=== PATIENT | male | born 1955 | race Caucasian/White ===

== ENCOUNTER → 2018-07-17 18:43 | Outpatient (CLI) | payer MEDICAID | END | disposition home or self-care (01) | LOC: D.LABREF 18:43 | DX: R31.9 Hematuria, unspecified (principal) ==

== ENCOUNTER 2018-09-16 08:30 | Day surgery (SDC) | payer BC ==
[2018-09-15 10:01] LABS: HEMATOCRIT 45.5 % (42.0-54.0); HEMOGLOBIN 15.4 g/dL (13.5-17.5); MCH 29.8 pg (26.0-34.0); MCHC 33.8 g/dL (31.0-37.0); MEAN PLATELET VOLUME 9.7 fL (7.4-10.4); RBC 5.17 10x6/uL (4.20-6.10); RDW 13.7 % (11.5-14.5); WBC 6.2 10x3/uL (4.8-10.8)
[2018-09-15 10:17] LABS: APTT 29.3 SECONDS (22.8-39.4); INR 1.02 (0.85-1.17); PROTIME 12.9 SECONDS (11.6-15.0)
[~2018-09-16] VITALS: Ht 185.4 cm; Wt 100.2 kg
[~2018-09-16 08:30] MED LIST: ATIVAN0.5 MG PO; FEXOFENADINE H180 MG PO; OXYBUTYNIN CHLOR5 MG PO; ZOLOFT100 MG PO
[2018-09-16 08:56] VITALS: BP 139/86; Ht 185.4 cm; Wt 100.2 kg
[2018-09-16] MEDS ORDERED: FUROSEMIDE20 MG PO (11:25)
[2018-09-16] MEDS ORDERED: FLOMAX0.4 MG PO (11:25)
[2018-09-16] MEDS ORDERED: HYDROCODON-ACE1 EAC7 PO (11:25)
== END 2018-09-16 15:45 | disposition home or self-care (01) ==
LOC: D.OPS 08:30 → D.PAN 10:45 → D.OPS 10:45
PROVIDERS: Anesthesiology; ATTEND Surgery
DX: K40.90 Unilateral inguinal hernia, without obstruction or gangrene, not specified as recurrent (principal); Z01.812 Encounter for preprocedural laboratory examination

== ENCOUNTER 2019-02-11 12:20 | Inpatient (IN) | payer BC ==
[~2019-02-11] VITALS: Ht 185.4 cm; Wt 95.5 kg
[~2019-02-11 12:20] MED LIST changes: +FLOMAX0.4 MG PO; +FUROSEMIDE20 MG PO; +HYDROCODON-ACE1 EAC7 PO
[2019-02-17 11:02] LABS: BASOPHILS 0.2 % (0-2); HEMATOCRIT 44.3 % (42.0-54.0); HEMOGLOBIN 15.3 g/dL (13.5-17.5); IMMATURE GRANULOCYTES 0.2 % (0-5); LYMPHOCYTES 29.5 % (15-50); MCHC 34.5 g/dL (31.0-37.0); MCV 84.1 fL (80.0-100.0); MEAN PLATELET VOLUME 9.6 fL (7.4-10.4); MONOCYTES 9.5 % (2-11); NEUTROPHILS 58.6 % (40-80); PLATELET COUNT 243 10x3/uL (130-400); RBC 5.27 10x6/uL (4.20-6.10); RDW 14.8 % (11.5-14.5); WBC 5.4 10x3/uL (4.8-10.8)
[2019-02-17 11:11] LABS: CALC OSMOLALITY 283 mosm/kg (275-300); CALCIUM 9.2 mg/dL (8.5-10.1); CARBON DIOXIDE 29.3 mmol/L (21.0-32.0); CHLORIDE - SERUM 106 mmol/L (98-107); GLUCOSE 102 mg/dL (74-106); POTASSIUM - SERUM 4.8 mmol/L (3.5-5.1); SODIUM 141 mmol/L (136-145); UREA NITROGEN 21 mg/dL (7-18); eGFR NON AFRICAN AMERICAN 80 mL/min (90-120)
[2019-02-17 11:13] LABS: APTT 27.5 SECONDS (22.8-39.4); PROTIME 12.7 SECONDS (11.6-15.0)
[2019-02-17 11:26] LABS: APPEARANCE HAZY (CLEAR); BILIRUBIN NEGATIVE (NEGATIVE); COLOR YELLOW (YELLOW); GLUCOSE NEGATIVE (NEGATIVE); KETONE NEGATIVE (NEGATIVE); NITRITE NEGATIVE (NEGATIVE); PROTEIN NEGATIVE (NEGATIVE); SPECIFIC GRAVITY 1.015 (1.005-1.020)
[2019-02-23] VITALS (8 sets, daily range): BP systolic 93–136; BP diastolic 69–96; Ht 185.4 cm; Wt 95.5 kg
--- NOTE | 2019-02-23 11:22 | NUR ---
PLASMA BLADE SET TO 6/8 BOVIE PAD RIGHT THIGH [id number] EXP 07/09/20 PREPPED FROM ILIAC CREST TO TOP OF HANA BOOT WITH HIBICLENS AND ALCOHOL AND THEN CHLORAPREP. LAMINAR FLOW IN USE. TRAFFIC IN AND OUT OF ROOM MONITORED CLOSELY AND LIMITED. TOBRAMYCIN 1.2GM AND VANCOMYCIN 1 GM PLACED IN WOUND BED.
--- NOTE | 2019-02-23 14:30 | NUR ---
PT ARRIVES TO ROOM TRANSPORTED BY RECOVERY ROOM STAFF VIA BED. FAMILY IS AT BEDSIDE. PT PLACED ON 2L O2 VIA NC. VSS. SEE FLOWSHEET. BED ALARM IS ON AND WORKING. PT IS RESTING WITH EYES CLOSED. RESPIRATIONS ARE EVEN AND UNLABORED. PT IS EASILY AROUSED WITH VERBAL STIMULATION. PT QUICKLY RETURNS TO RESTING STATE. DRESSING TO LEFT HIP IS C/D/I. PT REPORTS PAIN 8/10 TO LEFT HIP. BED IS IN THE LOWEST POSITION. CALL LIGHT AND BEDSIDE TABLE ARE WITHIN REACH. SIDE RAILS X 2. FAMILY AT BEDSIDE. PT AND PT FAMILY DENY FURTHER NEEDS AT THIS TIME. WILL CONT TO CLOSELY MONITOR.
--- NOTE | 2019-02-23 14:38 | NUR ---
SCDS ARE ON BILATERAL LOWER EXTREMITIES. IS AT BEDSIDE.
--- NOTE | 2019-02-23 14:53 | OP ---
PATIENT NAME: DONALD MORRIS MEDICAL RECORD: [id number] :57 LOCATION:D.MS [id number] ADMISSION DATE:02/23/19 SURGEON: RALPH MARTIN DO DATE OF OPERATION: 02/23/2019 PROCEDURE PERFORMED: Left total hip arthroplasty. PREOPERATIVE DIAGNOSIS: Left hip osteoarthritis. POSTOPERATIVE DIAGNOSIS: Left hip osteoarthritis. INDICATIONS: Mr. Morris is a 63-year-old male who has had left hip pain for quite some time with lack of motion and he is tired of dealing with it. He has tried everything including injections and activity modification to no avail and he wanted a hip replacement. He is aware of the risks including infection, bleeding, damage to nerves and vessels, fracture, need for further surgery, failure of implants, blood clots, and even . He signed the consent. SURGEON: Ralph Martin DO MASTER WELDER: I was assisted by Nahum Greene, advanced nurse practitioner. DESCRIPTION OF PROCEDURE: The patient received a block by anesthesia in the preoperative area. He was taken to the operative suite, laid in supine position, given general anesthetic and a gram of vancomycin due to his Ancef allergy. Once he was sedated and intubated, the patient was moved over to the [place] table and positioned. The left hip was then prepped and draped in usual sterile fashion. Once the hip was prepped and draped, a timeout was performed, everyone was in agreement with the correct side, site, patient and procedure and the procedure began by making an incision over the tensor fascia feliz muscle. Careful dissection was made down to the tensor fascia feliz fascia. Fascia was taken anterior muscle belly posteriorly, opened up to the rectus interval. The rectus was then taken medially and then tensor fascia feliz laterally. The ascending branch of the lateral femoral circumflex artery was then encountered and tied off and then coagulated with the Aquamantys and then down to the capsule. Capsule was cleared off. Capsulotomy was performed and the neck was exposed. The neck was then cut and the head was removed. Once the head was removed, the labrum was removed as well as the pulvinar. The reaming then began up to 58. The 58 cup was then impacted into place and fit very well, was secured into place and pulled and pushed and ensured that it was a good tight fit and it was. The liner was then put in on the cup under fluoroscopy. The femur was then exposed and broaching began with a 4 up to an 11. We trialed that, appeared we need to lateralize a little more. This was then done and went up to a 14 stem with a high offset and a 28 bipolar ceramic head and a -6 neck. This was good. Equal lengths compared to his other side on x-ray on AP pelvis and once we got this in good position, x-rays were done ensuring no fractures in the femur, had good position of all the components. The wound was then thoroughly irrigated with Bactisure 1 liter and then 1 liter of normal saline. Once it was irrigated, the tobramycin and vancomycin powder as well as Surgicel powder was put in the wound. The tensor fascia feliz fascia was closed with #1 Vicryl first in a [id number] and then a running locking stitch. The skin was closed with 2-0 Vicryl in an inverted interrupted fashion, 4-0 Monocryl ran on the skin and Prineo glue placed on the skin. Telfa and Tegaderm covered the wound. The patient was awakened and taken to recovery in stable condition. Blood loss was approximately 200 mL. OPERATIVE REPORT [id number] DONALD MORRIS COMPLICATIONS: None. TRANSINT:[id number] Voice Confirmation ID: [id number] DOCUMENT ID: [id number] RALPH MARTIN DO at 1453 CC: [id number] DICTATION DATE: 02/23/19 1238 TORSION SPRING COILING MACHINE SETTER: 02/23/19 1428 ADM IN [place] [id number] [place] [id number]
--- NOTE | 2019-02-24 00:57 | NUR ---
PT RESTING IN BED. ALERT AND ORIENTED. NO SIGNS OF DISTRESS. BREATHING EVEN AND UNLABORED. PT STATES HARD TIME KEEPING PAIN UNDER CONTROL. WILL TRY SOMETHING ELSE FOR PAIN. IV SITE RT FA DRESSING CLEAN DRY AND INTACT. NO SIGNS OF INFECTION. BOWEL SOUNDS ACTIVE. LT HIP DRESSING CLEAN DRY AND INTACT. SCDS AND CHRISTIAN HOSE ON PT. WILL CONTINUE PLAN OF CARE. CALL LIGHT IN REACH. BED LOWERED AND LOCKED. BED RAILS UPX2.
[2019-02-24 01:11] VITALS: BP 100/51
--- NOTE | 2019-02-24 04:23 | NUR ---
I have reviewed this patient and I concur with the Shift Assessment completed by the Licensed Practical Nurse today this shift.
[2019-02-24 05:18] VITALS: BP 106/56
[2019-02-24 07:07] LABS: BASOPHILS 0.1 % (0-2); EOSINOPHILS 0.1 % (0-7); HEMATOCRIT 35.5 % (42.0-54.0); HEMOGLOBIN 12.4 g/dL (13.5-17.5); IMMATURE GRANULOCYTES 0.2 % (0-5); LYMPHOCYTES 14.6 % (15-50); MCH 29.5 pg (26.0-34.0); MCHC 34.9 g/dL (31.0-37.0); MCV 84.3 fL (80.0-100.0); MEAN PLATELET VOLUME 9.7 fL (7.4-10.4); MONOCYTES 12.6 % (2-11); NEUTROPHILS 72.4 % (40-80); PLATELET COUNT 217 10x3/uL (130-400); RBC 4.21 10x6/uL (4.20-6.10); WBC 9.1 10x3/uL (4.8-10.8)
[2019-02-24 07:36] LABS: ALBUMIN 3.1 g/dL (3.4-5.0); ANION GAP 12.8 mmol/L (8-16); BILIRUBIN - TOTAL 0.44 mg/dL (0.2-1.3); CALCIUM 8.4 mg/dL (8.5-10.1); CARBON DIOXIDE 26.4 mmol/L (21.0-32.0); CREATININE - SERUM 1.2 mg/dL (0.6-1.3); POTASSIUM - SERUM 4.2 mmol/L (3.5-5.1); PROTEIN - SERUM 5.9 g/dL (6.4-8.2)
--- NOTE | 2019-02-24 07:42 | NUR ---
PT IS RESTING IN BED WITH EYES CLOSED. RESPIRATIONS ARE EVEN AND UNLABORED. PT IS EASILY AROUSED WITH VERBAL STIMULATION. PT REPORTS DISCOMFORT TO LEFT HIP BUT DENIES NEEDS AT THIS TIME. PT DENIES PRESENCE OF N/V. DRESSING TO LEFT HIP IS CDI. PT IS ABLE TO MOVE TOES AND REPORTS FEELING TO LEFT LOWER EXTREMITY. BED IS IN THE LOWEST POSITION. CALL LIGHT AND BEDSIDE TABLE ARE WITHINR EACH. SIDE RAILS X 2. PT DENIES FURTHER NEEDS. WILL CONT TO MONITOR.
[2019-02-24 09:03] VITALS: BP 94/64
--- NOTE | 2019-02-24 11:15 | NUR ---
DRESSING CHANGED TO LLE PER ORDER. PT TOLERATED WELL. SIGNAL TECHNICIAN DILAUDID AVAILABLE.
[2019-02-24 13:48] VITALS: BP 107/63
--- NOTE | 2019-02-24 14:32 | MORECARE ---
CASE MANAGEMENT DISCHARGE SUMMARY PATIENT: DONALD MORRIS UNIT: [id number] ADM DATE: 02/23/19 AGE: 63 : 57 SEX: M ROOM/BED: D.2211 AUTHOR: MARIAMA ORR PHYSICIAN: REFERRING PHYSICIAN: DARIUS MARTIN DO DATE OF SERVICE: 02/24/19 Discharge Plan Patient Name: DONALD MORRIS Facility: [facility]:[place] : 1955 Planned Disposition: Home Anticipated Discharge Date: Discharge Date: Expected LOS: Initial Reviewer: [email or web address] Initial Review Date: 02/23/2019 Generated: 02/24/19 3:32 pm Comments DCP- Discharge Planning Updated by [email or web address]: Celi Carter on 02/24/19 1:[address] Patient Name: DONALD MORIRS Admission Status: Elective Accout number: [id number] Admission Date: 02-23-2019 : 1955 Admission Diagnosis: Attending: DARIUS MARTIN Current LOS: 1 Anticipated DC Date: Planned Disposition: Home Primary Insurance: [employer] EXCHANGE Discharge Planning Comments: CM met with patient to complete initial dc planning assessment. CM educated patient on the CM role and verbal consent given by patient to complete assessment. Patient lives at home with his where he is independent with his care. At discharge patient plans to return home and feels this is a safe discharge. CM discussed availability of home health, rehab services, and medical equipment. He will need a walker at [place]. He would like to do his OP PT at [facility]. I have made his appointment for FridayMar 02 @ 12:45. I spoke with Nikhil. Patient denied known discharge needs at this time. CM will continue to follow and will assist as needed with dc plans/needs. Loan Services Professional: Celi Carter DCPIA - Discharge Planning Initial Assessment Updated by [email or web address]: Celi Carter on 02/24/19 2:25 pm * Is the patient Alert and Oriented? Yes * How many steps to enter\exit or inside your home? * PCP [facility] * Pharmacy [address] * Preadmission Environment Home with Family * ADLs Independent * Equipment None * List name and contact numbers for known caregivers / representatives who currently or will assist patient after discharge: SHALINI MORRIS [phone] * Verbal permission to speak to the caregivers and representatives has been obtained from the patient. N/A * Community resources currently utilized None * Additional services required to return to the preadmission environment? Yes * Can the patient safely return to the preadmission environment? Yes * Has this patient been hospitalized within the prior 30 days at any hospital? No Patient Name: DONALD MORRIS Page [phone] at 1432 All edits/amendments must be made on the electronic document DICTATION DATE: 02/24/19 143 ADMINISTRATIVE RESIDENT: LAURI 02/24/19 143 RPT#: [id number] DC DATE: STATUS: ADM IN [facility] [address] [place] [address] END OF REPORT
[2019-02-24 17:10] VITALS: BP 117/63
[2019-02-24 21:53] VITALS: BP 104/49
[2019-02-25 00:25] VITALS: BP 113/58
--- NOTE | 2019-02-25 04:19 | NUR ---
PT RESTING IN BED. EYES CLOSED. NO SIGNS OF DISTRESS. BREATHING EVEN AND UNLABORED. IV SITE RT FA DRESSING CLEAN DRY AND INTACT. NO SIGNS OF INFECTION. BOWEL SOUNDS ACTIVE. LT HIP DRESSING CLEAN DRY AND INTACT. WILL CONTINUE PLAN OF CARE. CALL LIGHT IN REACH. BED LOWERED AND LOCKED. BED RAILS UPX2.
--- NOTE | 2019-02-25 04:21 | NUR ---
IV INFULTRATED. NEW IV SITED LT FA ATTEMPTS X1. PT TOLERATED WELL. WILL CONTINUE IV FLUIDS.
[2019-02-25 05:16] VITALS: BP 105/70
[2019-02-25 06:01] LABS: BASOPHILS 0.1 % (0-2); EOSINOPHILS 2.3 % (0-7); HEMATOCRIT 35.5 % (42.0-54.0); HEMOGLOBIN 11.8 g/dL (13.5-17.5); IMMATURE GRANULOCYTES 0.3 % (0-5); LYMPHOCYTES 19.5 % (15-50); MCH 28.3 pg (26.0-34.0); MCHC 33.2 g/dL (31.0-37.0); MCV 85.1 fL (80.0-100.0); MEAN PLATELET VOLUME 9.7 fL (7.4-10.4); MONOCYTES 11.9 % (2-11); NEUTROPHILS 65.9 % (40-80); PLATELET COUNT 183 10x3/uL (130-400); RBC 4.17 10x6/uL (4.20-6.10); RDW 15.1 % (11.5-14.5); WBC 7.4 10x3/uL (4.8-10.8)
[2019-02-25 06:38] LABS: ALBUMIN 3.1 g/dL (3.4-5.0); ANION GAP 8.9 mmol/L (8-16); BILIRUBIN - TOTAL 0.61 mg/dL (0.2-1.3); CALCIUM 8.4 mg/dL (8.5-10.1); CARBON DIOXIDE 30.5 mmol/L (21.0-32.0); CREATININE - SERUM 1.1 mg/dL (0.6-1.3); POTASSIUM - SERUM 4.4 mmol/L (3.5-5.1); PROTEIN - SERUM 5.8 g/dL (6.4-8.2)
--- NOTE | 2019-02-25 07:20 | NUR ---
PT IS RESTING IN BED WITH EYES OPEN. RESPIRATIONS ARE EVEN AND UNLABORED. PT REPORTS SLIGHT PAIN. DENIES NEEDS. PT DENIES PRESENCE OF N/V. DRESSING TO LEFT HIP IS CDI. BED IS IN THE LOWEST POSITION. CALL LIGHT AND BEDSIDE TABLE ARE WITHIN REACH. SIDE RAILS X2. PT DENIES FURTHER NEEDS. WILL CONT TO MONITOR.
[2019-02-25] MEDS ORDERED: ELIQUIS2.5 MG PO (08:17)
[2019-02-25] MEDS ORDERED: VISTARIL50 MG PO (08:18)
[2019-02-25] MEDS ORDERED: OXYCODONE HCL5 M1 PO (08:18)
[2019-02-25] MEDS ORDERED: VIBRAMYCIN 100100 MG PO (08:18)
[2019-02-25 08:47] VITALS: BP 116/73
--- NOTE | 2019-02-25 10:03 | MORECARE ---
CASE MANAGEMENT DISCHARGE SUMMARY PATIENT: DONALD MORRIS UNIT: [id number] ADM DATE: 02/23/19 AGE: 63 : 57 SEX: M ROOM/BED: D.2211 AUTHOR: MARIAMA ORR PHYSICIAN: REFERRING PHYSICIAN: DARIUS MARTIN DO DATE OF SERVICE: 02/25/19 Discharge Plan Patient Name: DONALD MORRIS Facility: [facility]:[place] : 1955 Planned Disposition: Home Anticipated Discharge Date: Discharge Date: Expected LOS: Initial Reviewer: [email or web address] Initial Review Date: 02/23/2019 Generated: 02/25/19 11:02 am Comments DCP- Discharge Planning Updated by [email or web address]: Celi Carter on 02/25/19 9:[address] [facility] WILL DELIVER WALKER TO ROOM TODAY PATIENT TO DC HOME TODAY WITH OUTPATIENT PT DCP- Discharge Planning Updated by [email or web address]: Celi Carter on 02/24/19 1:[address] Patient Name: DONALD MORRIS Admission Status: Elective Accout number: [id number] Admission Date: 02-23-2019 : 1955 Admission Diagnosis: Attending: DARIUS MARTIN Current LOS: 1 Anticipated DC Date: Planned Disposition: Home Primary Insurance: [employer] [facility] EXCHANGE Discharge Planning Comments: CM met with patient to complete initial dc planning assessment. CM educated patient on the CM role and verbal consent given by patient to complete assessment. Patient lives at home with his where he is independent with his care. At discharge patient plans to return home and feels this is a safe discharge. CM discussed availability of home health, rehab services, and medical equipment. He will need a walker at [place]. He would like to do his OP PT at [facility]. I have made his appointment for FridayMar 02 @ 12:45. I spoke with Nikhil. Patient denied known discharge needs at this time. CM will continue to follow and will assist as needed with dc plans/needs. Office Assistant Receptionist: Celi Carter DCPIA - Discharge Planning Initial Assessment Updated by [email or web address]: Celi Carter on 02/24/19 2:25 pm * Is the patient Alert and Oriented? Yes * How many steps to enter\exit or inside your home? * PCP [facility] * Pharmacy [address] * Preadmission Environment Home with Family * ADLs Independent * Equipment None * List name and contact numbers for known caregivers / representatives who currently or will assist patient after discharge: SHALINI MORRIS [phone] * Verbal permission to speak to the caregivers and representatives has been obtained from the patient. N/A * Community resources currently utilized None * Additional services required to return to the preadmission environment? Yes * Can the patient safely return to the preadmission environment? Yes * Has this patient been hospitalized within the prior 30 days at any hospital? No Last DP export: 02/24/19 1:32 p Patient Name: DONALD MORRIS Page [phone] at 1003 All edits/amendments must be made on the electronic document DICTATION DATE: 02/25/19 1002 TABLEAU DEVELOPER: LAURI 02/25/19 1002 RPT#: [id number] DC DATE: STATUS: ADM IN [facility] [address] [place] [address] END OF REPORT
--- NOTE | 2019-02-25 11:33 | NUR ---
DRESSING TO LEFT HIP CHANGED PER ORDER. ALL DISCHARGE INSTRUCTIONS COVERED WITH PT. PRINTED RX GIVEN TO PT. ALL QUESTIONS/CONCERNS ADDRESSED. PIV TO LEFT FA REMOVED WITH CATHETER TIP INTACT. DRESSING APPLIED. ALL DISCHARGE PAPERS SIGNED. PT DENIES FURTHER NEEDS/QUESTIONS/CONCERNS.
--- NOTE | 2019-02-25 11:52 | NUR ---
PT TRANSPORTED FROM ROOM VIA WHEELCHAIR BY HOSPITAL STAFF. PT DENIES FURTHER NEEDS/QUESTIONS/CONCERNS AT THIS TIME. PT WITH WALKER FOR HOME USE.
--- NOTE | 2019-02-26 12:48 | MORECARE ---
CASE MANAGEMENT DISCHARGE SUMMARY PATIENT: DONALD MORRIS UNIT: [id number] ADM DATE: 02/23/19 AGE: 63 : 57 SEX: M ROOM/BED: D.2211 AUTHOR: MARIAMA ORR PHYSICIAN: REFERRING PHYSICIAN: DARIUS MARTIN DO DATE OF SERVICE: 02/26/19 Discharge Plan Patient Name: DONALD MORRIS Facility: [facility]:[place] : 1955 Planned Disposition: Home Anticipated Discharge Date: Discharge Date: 02/25/2019 Expected LOS: 0 Initial Reviewer: [email or web address] Initial Review Date: 02/23/2019 Generated: 02/26/19 1:48 pm Comments DCP- Discharge Planning Updated by [email or web address]: Celi Carter on 02/25/19 9:[address] [facility] WILL DELIVER WALKER TO ROOM TODAY PATIENT TO DC HOME TODAY WITH OUTPATIENT PT DCP- Discharge Planning Updated by [email or web address]: Celi Carter on 02/24/19 1:[address] Patient Name: DONALD MORRIS Admission Status: Elective Accout number: [id number] Admission Date: 02-23-2019 : 1955 Admission Diagnosis: Attending: DARIUS MARTIN Current LOS: 1 Anticipated DC Date: Planned Disposition: Home Primary Insurance: [employer] [facility] EXCHANGE Discharge Planning Comments: CM met with patient to complete initial dc planning assessment. CM educated patient on the CM role and verbal consent given by patient to complete assessment. Patient lives at home with his where he is independent with his care. At discharge patient plans to return home and feels this is a safe discharge. CM discussed availability of home health, rehab services, and medical equipment. He will need a walker at [place]. He would like to do his OP PT at [facility]. I have made his appointment for FridayMar 02 @ 12:45. I spoke with Nikhil. Patient denied known discharge needs at this time. CM will continue to follow and will assist as needed with dc plans/needs. Director [place] Sales: Celi Carter DCPIA - Discharge Planning Initial Assessment Updated by [email or web address]: Celi Carter on 02/24/19 2:25 pm * Is the patient Alert and Oriented? Yes * How many steps to enter\exit or inside your home? * PCP [facility] * Pharmacy [address] * Preadmission Environment Home with Family * ADLs Independent * Equipment None * List name and contact numbers for known caregivers / representatives who currently or will assist patient after discharge: SHALINI MORRIS [phone] * Verbal permission to speak to the caregivers and representatives has been obtained from the patient. N/A * Community resources currently utilized None * Additional services required to return to the preadmission environment? Yes * Can the patient safely return to the preadmission environment? Yes * Has this patient been hospitalized within the prior 30 days at any hospital? No Last DP export: 02/25/19 9:03 a Patient Name: DONALD MORRIS Page 41989 at 1248 All edits/amendments must be made on the electronic document DICTATION DATE: 02/26/198 PREPARATION OPERATOR: LAURI 02/26/19 1248 RPT#: [id number] DC DATE:02/25/19 STATUS: DIS IN [facility] [address] [place] [address] END OF REPORT
== END 2019-02-25 12:44 | disposition home or self-care (01) | DRG 470 ==
LOC: D.MS 02-23 07:39 → D.SDCHOLD 02-23 07:39 → D.MS 02-23 13:40
PROVIDERS: Internal Medicine Nephrology; ADMIT Orthopaedic Surgery; ATTEND Orthopaedic Surgery
PROC: 0SRB0J9 Replacement of Left Hip Joint with Synthetic Substitute, Cemented, Open Approach (ICD-10-PCS; principal; 2019-02-23 09:15)
DX: M16.12 Unilateral primary osteoarthritis, left hip (principal); D62 Acute posthemorrhagic anemia; I25.10 Atherosclerotic heart disease of native coronary artery without angina pectoris; F41.9 Anxiety disorder, unspecified; Z85.820 Personal history of malignant melanoma of skin; Z85.46 Personal history of malignant neoplasm of prostate

== ENCOUNTER → 2019-02-11 14:03 | Outpatient (CLI) | payer BC ==
[2018-09-16 08:56] VITALS: BMI 29.2
[~2019-02-11 14:03] MED LIST changes: +ELIQUIS2.5 MG PO; +OXYCODONE HCL5 M1 PO; +VIBRAMYCIN 100100 MG PO; +VISTARIL50 MG PO
--- NOTE | 2019-02-24 14:31 | EC ---
PATIENT:DONALD MORRIS DATE OF SERVICE: 02/11/19 SEX: M MEDICAL RECORD: [id number] DATE OF : 57 LOCATION:[facility] AGE OF PATIENT: 63 ADMISSION DATE: 02/11/19 REFERRING PHYSICIAN: INTERPRETING PHYSICIAN: BEULAH PEREZ MD ECHOCARDIOGRAM REPORT ECHO CHARGES 4 ECHO COMPLETE Date: 02/11/19 CLINICAL DIAGNOSIS: MURMUR ECHOCARDIOGRAPHIC MEASUREMENTS (adult normal given) AC root (d.<3.7cm) 4.0 cm LV Septum d (<1.2 cm> 1.4 cm Valve Excursion 2.2 cm LV Septum (systole) 1.6 cm Left Atria (s.<4.0cm> 3.4 cm LVPW d(<1.2cm) 1.5 cm RV (d.<2.3cm) 3.4 cm LVPW (sytole) 1.7 cm LV diastole(<5.6CM) 4.9 cm MV E-F(>70mm/sec) cm LV systole 3.7 cm LVOT Diameter 2.1 cm MV exc.(>10mm) 1.5 cm Est.ejection fraction (50-75%) % DOPPLER: LVIT cm/sec A 72.0 cm/sec E 47.0 cm/sec LA cm/sec RVSP 30 mmHg LVOT 77 cm/sec AOP1/2T m/s Asc. Ao 113 cm/sec RVOT 62 cm/sec RA cm/sec PA 137 cm/sec AV Gradient Peak 5.12 mmHg AV Mean 2.70 mmHg AV Area 2.2 cm MV Gradient Peak 2.77 mmHg MV Mean 0.81 mmHg MV Area cm COMMENTS: Horticultural Services Supervisor: Ryder TANNER Mortising Machine Operator: 3 Dr. Pineda TAPE# PACS Pericardial Effusion N DATE OF SERVICE: 02/12/2019 FINDINGS: 1. Left ventricular chamber size is within normal limits. Left ventricular systolic function is normal. Overall ejection fraction estimated at 55%. 2. Left atrium, right atrium, and right ventricular chamber sizes are within normal limits. 3. Valvular structures have normal structure and motion. 4. Doppler interrogation reveals mild mitral regurgitation, mild tricuspid regurgitation. No other valvular insufficiency or stenosis. Pulmonary systolic ECHOCARDIOGRAM REPORT [id number] DONALD MORRIS pressure is estimated at 30 mmHg. 5. No evidence of pericardial effusion or left ventricular thrombus. TRANSINT:[id number] Voice Confirmation ID: [id number] DOCUMENT ID: [id number] BEULAH PEREZ MD at 1431 CC: [id number] DICTATION DATE: 02/12/1940 CLINICAL SYSTEMS EDUCATOR: 02/12/19 1039 DEP CLI 02/11/19 [place] [id number] [place] [id number]
== END | disposition home or self-care (01) ==
LOC: D.HCCARDIO 14:03
PROVIDERS: ATTEND Internal Medicine Interventional Cardiology
DX: R01.1 Cardiac murmur, unspecified (principal)

== ENCOUNTER → 2019-03-23 08:54 | Outpatient (CLI) | payer BC ==
[2019-02-23 14:41] VITALS: BMI 27.7
[~2019-03-23 08:54] MED LIST changes: +BAYER CHEWABLE81 MG PO; +PHENERGAN25 M1 PO; +RIFADIN300 MG PO; +SOMA350 MG PO; +Vancomycin 1.25 GM/N IV; +ZYVOX600 MG PO
== END | disposition home or self-care (01) ==
LOC: D.MRI 08:54
PROVIDERS: ATTEND Orthopaedic Surgery
DX: M54.16 Radiculopathy, lumbar region (principal)

== ENCOUNTER 2019-03-27 18:44 | Inpatient (IN) | payer BC ==
[~2019-03-27] VITALS: Ht 185.4 cm; Wt 97.5 kg
[~2019-03-27 18:44] MED LIST changes: -BAYER CHEWABLE81 MG PO; -PHENERGAN25 M1 PO; -RIFADIN300 MG PO; -SOMA350 MG PO; -Vancomycin 1.25 GM/N IV; -ZYVOX600 MG PO
[2019-03-27 19:24] LABS: BASOPHILS 0.2 % (0-2); EOSINOPHILS 1.1 % (0-7); HEMATOCRIT 42.4 % (42.0-54.0); HEMOGLOBIN 14.1 g/dL (13.5-17.5); IMMATURE GRANULOCYTES 0.2 % (0-5); MCH 29.3 pg (26.0-34.0); MCHC 33.3 g/dL (31.0-37.0); MCV 88.1 fL (80.0-100.0); MEAN PLATELET VOLUME 9.4 fL (7.4-10.4); MONOCYTES 6.3 % (2-11); NEUTROPHILS 84.2 % (40-80); PLATELET COUNT 248 10x3/uL (130-400); RBC 4.81 10x6/uL (4.20-6.10); RDW 14.4 % (11.5-14.5); WBC 13.3 10x3/uL (4.8-10.8)
[2019-03-27 19:39] LABS: ALBUMIN 4.1 g/dL (3.4-5.0); ANION GAP 16.3 mmol/L (8-16); BILIRUBIN - TOTAL 0.6 mg/dL (0.2-1.3); C-REACTIVE PROTEIN 1.1 mg/dL (0.0-0.9); CALCIUM 9.1 mg/dL (8.5-10.1); CARBON DIOXIDE 23.6 mmol/L (21.0-32.0); CREATININE - SERUM 1.2 mg/dL (0.6-1.3); POTASSIUM - SERUM 3.9 mmol/L (3.5-5.1); PROTEIN - SERUM 7.5 g/dL (6.4-8.2)
[2019-03-27 20:15] LABS: APPEARANCE CLEAR (CLEAR); BILIRUBIN NEGATIVE (NEGATIVE); COLOR YELLOW (YELLOW); GLUCOSE NEGATIVE (NEGATIVE); KETONE NEGATIVE (NEGATIVE); NITRITE NEGATIVE (NEGATIVE); PROTEIN TRACE mg/dL (NEGATIVE); SPECIFIC GRAVITY 1.005 (1.005-1.020); UROBILINOGEN NORMAL (NORMAL)
[2019-03-27 20:26] LABS: ERYTHROCYTE SEDIMENTATION RATE 7 mm/hr (0-20)
[2019-03-27 22:58] LABS: EOS BF 21 %; MESOTHELIALS BF 1 %; NEUT - BF 77 %
[2019-03-28 01:37] VITALS: BP 115/70; BMI 28.4
[2019-03-28 04:00] VITALS: BP 111/67
[2019-03-28 07:59] VITALS: BP 133/76
[2019-03-28 10:41] VITALS: BP 109/58
[2019-03-28 14:17] VITALS: BP 110/76
--- NOTE | 2019-03-28 17:59 | OP ---
PATIENT NAME: DONALD MORRIS MEDICAL RECORD: [id number] :57 LOCATION:D.MS [id number] ADMISSION DATE:03/27/19 SURGEON: RALPH MARTIN, DATE OF OPERATION: 03/28/2019 PROCEDURE PERFORMED: Left hip irrigation and debridement with poly and head exchange. PREOPERATIVE DIAGNOSIS: Left hip periprosthetic infection. POSTOPERATIVE DIAGNOSIS: Left hip periprosthetic infection. INDICATIONS: Mr. Morris is a 63-year-old male who underwent left total hip approximately 4 weeks ago, and last week and yesterday started to develop extreme left hip pain and could not bear weight on it and started to get a fever of 102. The patient was brought to the ER and labs were done. He had elevated white count and CRP. I aspirated his hip and it showed a serosanguineous viscous fluid. This was sent for lab with a white blood cell count of over 50,000 knowing that and all the symptoms, he was instructed that he had a hip infection and we do an I&D due to the acuteness of the fracture, in fact it did not work, we had to explain everything and do antibiotic spacers. He is aware that he will be on IV antibiotics for 6 weeks, he was okay with that. He does have a history of C. difficile, put on the protocol for antibiotic use. He was aware of the risk of further infection, bleeding, damage to nerves and vessels, need for further surgery, blood clots, and even and he signed the consent. SURGEON: Ralph Martin DO BOBCAT DRIVER/LABOR: Blessing Salamanca, certified assistant professor of spanish. DESCRIPTION OF PROCEDURE: The patient was taken to the operative suite in supine position, sedated and intubated. The patient was then moved over to the [place] table and positioned. The left hip was then prepped and draped in sterile fashion. A timeout was performed, everyone was in agreement with the correct side, site, patient and procedure. He has been on antibiotics on the floor, so no new antibiotics were given. The incision began over the old hip incision and since the incision was made, serosanguineous fluid gushed out of the incision. This was all cultured, 3 different sets of cultures were taken. The dissection was made down through the tensor fascia feliz fascia and down to the hip joint. A Charnley was placed and the hip was dislocated. The head was removed and the implants were very solid in the femur and in the acetabulum. There was no loosening seen on them and then began to debride the devitalized tissue and irrigated 6 liters of normal saline and then a liter of Bactisure let that sit for 2 minutes and then another 3 liters of normal saline. A new head and poly were put on the dual mobility. His hip was then reduced. X-ray was taken and seem to be in good position and no fracture seen. The hip was then irrigated fourth time with a bag of 3 liters of saline making it 12 liters total. Any tissue was scraped with a curette to cause bleeding at that time on the more superficial surface of the tensor fascia and the debridement was done at that time to have devitalized tissue. Once that, irrigation was done, we put vancomycin, tobramycin powder in the wound and Surgicel powder. The tensor fascia feliz was then closed with 0 Monocryl in [id number] fashion, skin with 2-0 Monocryl in an inverted interrupted fashion, 4-0 Monocryl ran on the skin and then a Prevena Plus was placed on the incision and hooked and up to wound VAC. He was then awakened and taken to recovery in stable condition. OPERATIVE REPORT [id number] DONALD MORRIS BLOOD LOSS: Approximately 100 mL. COMPLICATIONS: None. TRANSINT:[id number] Voice Confirmation ID: [id number] DOCUMENT ID: [id number] RALPH MARTIN DO at 1755 CC: [id number] DICTATION DATE: 03/28/19 0953 MILKING SYSTEM INSTALLER: 03/28/19 1712 ADM IN [facility] [address] [place] [id number]
[2019-03-28 20:00] VITALS: BP 119/59
[2019-03-29] VITALS: BP 105/53
[2019-03-29 04:00] VITALS: BP 103/71
[2019-03-29 05:33] LABS: BASOPHILS 0 % (0-2); EOSINOPHILS 0.1 % (0-7); IMMATURE GRANULOCYTES 0.3 % (0-5); MCH 28.6 pg (26.0-34.0); MCHC 31.7 g/dL (31.0-37.0); MEAN PLATELET VOLUME 9.7 fL (7.4-10.4); MONOCYTES 8.9 % (2-11); NEUTROPHILS 80.7 % (40-80); PLATELET COUNT 237 10x3/uL (130-400); RDW 14.5 % (11.5-14.5); WBC 12.4 10x3/uL (4.8-10.8)
[2019-03-29 05:44] LABS: HEMATOCRIT 33.4 % (42.0-54.0); HEMOGLOBIN 10.6 g/dL (13.5-17.5); RBC 3.71 10x6/uL (4.20-6.10)
[2019-03-29 05:55] LABS: BILIRUBIN - TOTAL 0.46 mg/dL (0.2-1.3); CALCIUM 8.4 mg/dL (8.5-10.1); CARBON DIOXIDE 28.2 mmol/L (21.0-32.0); CREATININE - SERUM 1.1 mg/dL (0.6-1.3); MAGNESIUM - SERUM 2.1 mg/dL (1.8-2.4); PROTEIN - SERUM 5.8 g/dL (6.4-8.2)
[2019-03-29 05:56] LABS: ANION GAP 10.6 mmol/L (8-16); POTASSIUM - SERUM 4.8 mmol/L (3.5-5.1)
[2019-03-29 08:36] VITALS: BP 93/59
[2019-03-29 12:38] VITALS: BP 105/63
[2019-03-29 12:46] VITALS: Ht 185.4 cm; Wt 97.5 kg
[2019-03-29 17:25] VITALS: BP 102/51
[2019-03-30] VITALS (7 sets, daily range): BP systolic 95–172; BP diastolic 54–86
[2019-03-30 06:39] LABS: BASOPHILS 0.2 % (0-2); EOSINOPHILS 4.2 % (0-7); HEMATOCRIT 33.7 % (42.0-54.0); HEMOGLOBIN 10.8 g/dL (13.5-17.5); IMMATURE GRANULOCYTES 0.5 % (0-5); LYMPHOCYTES 26.2 % (15-50); MCH 28.5 pg (26.0-34.0); MCV 88.9 fL (80.0-100.0); MONOCYTES 9.6 % (2-11); NEUTROPHILS 59.3 % (40-80); PLATELET COUNT 224 10x3/uL (130-400); RBC 3.79 10x6/uL (4.20-6.10); RDW 14.6 % (11.5-14.5)
[2019-03-30 06:43] LABS: WBC 8.8 10x3/uL (4.8-10.8)
[2019-03-30 06:57] LABS: ALBUMIN 2.8 g/dL (3.4-5.0); ANION GAP 9.9 mmol/L (8-16); BILIRUBIN - TOTAL 0.36 mg/dL (0.2-1.3); CALCIUM 8.3 mg/dL (8.5-10.1); CARBON DIOXIDE 28.5 mmol/L (21.0-32.0); CREATININE - SERUM 1.1 mg/dL (0.6-1.3); POTASSIUM - SERUM 4.4 mmol/L (3.5-5.1); PROTEIN - SERUM 5.6 g/dL (6.4-8.2)
--- NOTE | 2019-03-30 14:13 | MORECARE ---
CASE MANAGEMENT DISCHARGE SUMMARY PATIENT: DONALD MORRIS UNIT: [id number] ADM DATE: 03/27/19 AGE: 64 : 57 SEX: M ROOM/BED: D.2231 AUTHOR: MARIAMA ORR PHYSICIAN: REFERRING PHYSICIAN: DARIUS MARTIN DO DATE OF SERVICE: 03/30/19 Discharge Plan Patient Name: DONALD MORRIS Facility: [facility]:[place] : 1955 Planned Disposition: Home with Home Health Anticipated Discharge Date: Discharge Date: Expected LOS: Initial Reviewer: [email or web address] Initial Review Date: 03/30/2019 Generated: 03/30/19 3:12 pm DCPIA - Discharge Planning Initial Assessment Updated by [email or web address]: Venus Solano on 03/30/19 2:07 pm * Is the patient Alert and Oriented? Yes * How many steps to enter\exit or inside your home? 0/0 * PCP Dr. Walker * [facility] * Preadmission Environment Home with Family * ADLs Partial Dependent * Partial ADLs (Assistance needed) Ambulation * Equipment Cane Walker * List name and contact numbers for known caregivers / representatives who currently or will assist patient after discharge: Alison Morris - - [phone] * Verbal permission to speak to the caregivers and representatives has been obtained from the patient. Yes * Community resources currently utilized Other * Please name any agencies selected above. Out patient PT at [facility] * Additional services required to return to the preadmission environment? Yes * Can the patient safely return to the preadmission environment? Yes * Has this patient been hospitalized within the prior 30 days at any hospital? Yes Patient Name: DONALD MORRIS Page 97328 at 1413 All edits/amendments must be made on the electronic document DICTATION DATE: 03/30/191411 CERTIFIED MASSAGE THERAPIST: LAURI 03/30/191411 RPT#: [id number] DC DATE: STATUS: ADM IN [facility] [address] [place] [address] END OF REPORT
--- NOTE | 2019-03-30 14:21 | MORECARE ---
CASE MANAGEMENT DISCHARGE SUMMARY PATIENT: DONALD MORRIS UNIT: [id number] ADM DATE: 03/27/19 AGE: 64 : 57 SEX: M ROOM/BED: D.2231 AUTHOR: DOMINGADOC PHYSICIAN: REFERRING PHYSICIAN: DARIUS MARTIN DO DATE OF SERVICE: 03/30/19 Discharge Plan Patient Name: DONALD MORRIS Facility: [facility]:[place] : 1955 Planned Disposition: Home with Home Health Anticipated Discharge Date: Discharge Date: Expected LOS: Initial Reviewer: [email or web address] Initial Review Date: 03/30/2019 Generated: 03/30/19 3:21 pm Comments DCP- Discharge Planning Updated by [email or web address]: Venus Solano on 03/30/19 1:[address] Patient Name: DONALD MORRIS Admission Status: ER Accout number: [id number] Admission Date: 03-27-2019 : 1955 Admission Diagnosis: Attending: DARIUS MARTIN Current LOS: 3 Anticipated DC Date: Planned Disposition: Home with Home Health Primary Insurance: [employer] EXCHANGE Discharge Planning Comments: CM met with patient to complete initial dc planning assessment. CM educated patient on the CM role and verbal consent given by patient to complete assessment. Patient lives at home with his . At discharge patient plans to return and feels this is a safe discharge. I informed him that Dr. Martin states he will need IV antibiotics at home and explained the process of the infusion company and home health services. KAMILA signed for [facility] and [facility]. I spoke with Radha Gay with [facility] and informed that I did not have the antibiotic order yet. I spoke with Christie with [facility] and clinical faxed. CM will continue to follow and will assist as needed with dc plans/needs. Filler Blender: Venus Solano DCPIA - Discharge Planning Initial Assessment Updated by [email or web address]: Venus Solano on 03/30/19 2:07 pm * Is the patient Alert and Oriented? Yes * How many steps to enter\exit or inside your home? 0/0 * PCP Dr. Walker * [facility] * Preadmission Environment Home with Family * ADLs Partial Dependent * Partial ADLs (Assistance needed) Ambulation * Equipment Cane Walker * List name and contact numbers for known caregivers / representatives who currently or will assist patient after discharge: Alison Morris - - [phone] * Verbal permission to speak to the caregivers and representatives has been obtained from the patient. Yes * Community resources currently utilized Other * Please name any agencies selected above. Out patient PT at [facility] * Additional services required to return to the preadmission environment? Yes * Can the patient safely return to the preadmission environment? Yes * Has this patient been hospitalized within the prior 30 days at any hospital? Yes External Providers External Provider: [facility] Next Contact Date: Service Request Date: Service Type: Resolution: Reviewer: Comments: Last DP export: 03/30/19 1:13 Patient Name: DONALD MORRIS Page 48624 at 1421 All edits/amendments must be made on the electronic document DICTATION DATE: 03/30/191420 PROJECT DEVELOPMENT LEADER: LAURI 03/30/19 142 RPT#: [id number] DC DATE: STATUS: ADM IN [facility] [address] [place] [address] END OF REPORT
[2019-03-31 01:20] VITALS: BP 120/54
[2019-03-31 05:11] VITALS: BP 134/60
[2019-03-31 05:29] LABS: BASOPHILS 0.2 % (0-2); EOSINOPHILS 3.9 % (0-7); HEMATOCRIT 37.1 % (42.0-54.0); HEMOGLOBIN 12.1 g/dL (13.5-17.5); IMMATURE GRANULOCYTES 0.3 % (0-5); LYMPHOCYTES 24.5 % (15-50); MCH 28.7 pg (26.0-34.0); MCHC 32.6 g/dL (31.0-37.0); MCV 87.9 fL (80.0-100.0); MEAN PLATELET VOLUME 10.1 fL (7.4-10.4); MONOCYTES 9.2 % (2-11); NEUTROPHILS 61.9 % (40-80); PLATELET COUNT 264 10x3/uL (130-400); RBC 4.22 10x6/uL (4.20-6.10); RDW 14.4 % (11.5-14.5); WBC 8.7 10x3/uL (4.8-10.8)
[2019-03-31 08:01] VITALS: BP 143/67
[2019-03-31 08:58] LABS: ALBUMIN 2.8 g/dL (3.4-5.0); ALKALINE PHOSPHATASE 62 U/L (46-116); ALT (SGPT) 18 U/L (10-68); CALC OSMOLALITY 282 mosm/kg (275-300); CALCIUM 8.1 mg/dL (8.5-10.1); CARBON DIOXIDE 23.8 mmol/L (21.0-32.0); CHLORIDE - SERUM 108 mmol/L (98-107); GLUCOSE 117 mg/dL (74-106); MAGNESIUM - SERUM 2.1 mg/dL (1.8-2.4); PROTEIN - SERUM 5.6 g/dL (6.4-8.2); SODIUM 141 mmol/L (136-145); UREA NITROGEN 14 mg/dL (7-18); eGFR NON AFRICAN AMERICAN 80 mL/min (90-120)
[2019-03-31 09:02] LABS: POTASSIUM - SERUM 3.6 mmol/L (3.5-5.1)
[2019-03-31 13:10] LABS: FUNGUS STAIN Final report (())
[2019-03-31 13:57] VITALS: BP 107/68
[2019-03-31 16:09] VITALS: BP 121/78
[2019-03-31 20:38] VITALS: BP 115/67
[2019-04-01] VITALS (7 sets, daily range): BP systolic 101–127; BP diastolic 60–78
[2019-04-01 06:34] LABS: BASOPHILS 0.1 % (0-2); EOSINOPHILS 7.6 % (0-7); HEMATOCRIT 34.8 % (42.0-54.0); HEMOGLOBIN 11.2 g/dL (13.5-17.5); IMMATURE GRANULOCYTES 0.7 % (0-5); LYMPHOCYTES 25.8 % (15-50); MCH 28.4 pg (26.0-34.0); MCHC 32.2 g/dL (31.0-37.0); MCV 88.3 fL (80.0-100.0); MEAN PLATELET VOLUME 9.4 fL (7.4-10.4); MONOCYTES 11.6 % (2-11); NEUTROPHILS 54.2 % (40-80); PLATELET COUNT 272 10x3/uL (130-400); RBC 3.94 10x6/uL (4.20-6.10); RDW 14.1 % (11.5-14.5); WBC 6.8 10x3/uL (4.8-10.8)
[2019-04-01 07:03] LABS: ALBUMIN 2.8 g/dL (3.4-5.0); ALKALINE PHOSPHATASE 64 U/L (46-116); ALT (SGPT) 20 U/L (10-68); BILIRUBIN - TOTAL 0.33 mg/dL (0.2-1.3); CALC OSMOLALITY 282 mosm/kg (275-300); CALCIUM 8.5 mg/dL (8.5-10.1); CARBON DIOXIDE 25.3 mmol/L (21.0-32.0); CHLORIDE - SERUM 108 mmol/L (98-107); CREATININE - SERUM 0.9 mg/dL (0.6-1.3); GLUCOSE 96 mg/dL (74-106); MAGNESIUM - SERUM 2.2 mg/dL (1.8-2.4); POTASSIUM - SERUM 3.7 mmol/L (3.5-5.1); PROTEIN - SERUM 6.1 g/dL (6.4-8.2); SODIUM 142 mmol/L (136-145); UREA NITROGEN 12 mg/dL (7-18); eGFR NON AFRICAN AMERICAN > 90 mL/min (90-120)
[2019-04-02] VITALS: BP 126/54
[2019-04-02 04:00] VITALS: BP 102/56
[2019-04-02 05:43] LABS: BASOPHILS 0.1 % (0-2); HEMATOCRIT 35.7 % (42.0-54.0); HEMOGLOBIN 11.5 g/dL (13.5-17.5); IMMATURE GRANULOCYTES 0.8 % (0-5); LYMPHOCYTES 21.2 % (15-50); MCH 28.5 pg (26.0-34.0); MCHC 32.2 g/dL (31.0-37.0); MCV 88.4 fL (80.0-100.0); MEAN PLATELET VOLUME 9.1 fL (7.4-10.4); MONOCYTES 10.1 % (2-11); NEUTROPHILS 61.8 % (40-80); PLATELET COUNT 274 10x3/uL (130-400); RBC 4.04 10x6/uL (4.20-6.10); RDW 14.2 % (11.5-14.5); WBC 7.4 10x3/uL (4.8-10.8)
[2019-04-02 06:36] LABS: ALBUMIN 2.9 g/dL (3.4-5.0); ALKALINE PHOSPHATASE 74 U/L (46-116); ALT (SGPT) 22 U/L (10-68); BILIRUBIN - TOTAL 0.31 mg/dL (0.2-1.3); CALC OSMOLALITY 279 mosm/kg (275-300); CALCIUM 8.2 mg/dL (8.5-10.1); CARBON DIOXIDE 28.2 mmol/L (21.0-32.0); CHLORIDE - SERUM 105 mmol/L (98-107); GLUCOSE 92 mg/dL (74-106); MAGNESIUM - SERUM 2.4 mg/dL (1.8-2.4); POTASSIUM - SERUM 4.1 mmol/L (3.5-5.1); PROTEIN - SERUM 5.8 g/dL (6.4-8.2); SODIUM 140 mmol/L (136-145); UREA NITROGEN 14 mg/dL (7-18); eGFR NON AFRICAN AMERICAN 80 mL/min (90-120)
--- NOTE | 2019-04-02 07:40 | OP ---
PATIENT NAME: DONALD MORRIS MEDICAL RECORD: [id number] :57 LOCATION:D.MS [id number] ADMISSION DATE:03/27/19 SURGEON: DARIUS MARTIN DO DATE OF OPERATION: 04/01/2019 PROCEDURE PERFORMED: Left hip irrigation and debridement. PREOPERATIVE DIAGNOSIS: Wound drainage from left hip. POSTOPERATIVE DIAGNOSIS: Wound drainage from left hip. INDICATIONS: Mr. 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 He was doing well and then started to drain some out of his wound due to the infection and concern, then I want fluid to build up and decided to take him back to the OR for I and D and placed a drain to suck the drainage out. I informed him of the risks including if it did not stop draining or if he continued to have problems with it, we have to do an explant with antibiotic spacer, blood clots, further infection, fracture and need for further surgery, and even . He signed the consent. SURGEON: Darius Martin DO DESCRIPTION OF PROCEDURE: The patient taken to the operative suite, laid in supine position, given general anesthetic and LMA was placed. He was then moved over to the Jackson bed and the left hip was prepped and draped in sterile fashion. He was on vancomycin, meropenem on the floor. A timeout was performed, everyone was in agreement with correct side, site, patient and procedure. The incision began over the old one after it had been prepped and draped and serosanguineous fluid came out of the wound. This was mostly superficial. We then went deep and had some of the same fluid came out from the deep wound. This was thoroughly irrigated, first with 3 liters of normal saline. Then, a liter of Bactisure. Then, another 3 liters of normal saline and in between use of scrub brush with chlorhexidine and this was then irrigated with 3 liters of normal saline at the end. We then placed a deep drain and a superficial drain and the IT band present. Fascia feliz fascia was then closed with 0 Monocryl in a [id number] fashion in the superficial layer, the drain was put in as well and this was closed with 2-0 Monocryl in an inverted fashion, 4-0 Monocryl in the skin. The drains were then secured with Tegaderms and a Prevena plus was put on the wound, it was then hooked up the wound VAC and held good suction. He was then awakened and taken to recovery in stable condition. Blood loss approximately 100 mL. COMPLICATIONS: None. TRANSINT:[id number] Voice Confirmation ID: [id number] DOCUMENT ID: [id number] OPERATIVE REPORT [id number] DONALD MORRIS,DARIUS Ocasio DO at 0740 CC: [id number] DICTATION DATE: 04/01/191999 CROZE MACHINE OPERATOR: 04/02/19 0045 ADM IN [facility] [address] [place] [address]
[2019-04-02 08:47] VITALS: BP 100/51
[2019-04-02] MEDS ORDERED: VISTARIL50 MG PO (12:20)
[2019-04-02] MEDS ORDERED: Vancomycin 1.25 GM/N IV (12:20)
[2019-04-02] MEDS ORDERED: OXYCODONE HCL5 M1 PO (12:20)
[2019-04-02] MEDS ORDERED: RIFADIN300 MG PO (12:21)
[2019-04-02] MEDS ORDERED: BAYER CHEWABLE81 MG PO (12:23)
--- NOTE | 2019-04-02 13:01 | MORECARE ---
CASE MANAGEMENT DISCHARGE SUMMARY PATIENT: DONALD MORRIS UNIT: [id number] ADM DATE: 03/27/19 AGE: 64 : 57 SEX: M ROOM/BED: D.2231 AUTHOR: DOMINGADOC PHYSICIAN: REFERRING PHYSICIAN: DARIUS MARTIN DO DATE OF SERVICE: 04/02/19 Discharge Plan Patient Name: DONALD MORRIS Facility: [facility]:[place] : 1955 Planned Disposition: Home with Home Health Anticipated Discharge Date: Discharge Date: Expected LOS: Initial Reviewer: [email or web address] Initial Review Date: 03/30/2019 Generated: 04/02/19 2:00 pm Comments DCP- Discharge Planning Updated by [email or web address]: Venus Solano on 03/30/19 1:[address] Patient Name: DONALD MORRIS Admission Status: ER Accout number: [id number] Admission Date: 03-27-2019 : 1955 Admission Diagnosis: Attending: DARIUS MARTIN Current LOS: 3 Anticipated DC Date: Planned Disposition: Home with Home Health Primary Insurance: [employer] EXCHANGE Discharge Planning Comments: CM met with patient to complete initial dc planning assessment. CM educated patient on the CM role and verbal consent given by patient to complete assessment. Patient lives at home with his . At discharge patient plans to return and feels this is a safe discharge. I informed him that Dr. Martin states he will need IV antibiotics at home and explained the process of the infusion company and home health services. KAMILA signed for [employer] [facility] and [facility]. I spoke with Radha Gay with [facility] and informed that I did not have the antibiotic order yet. I spoke with Christie with [employer] [facility] and clinical faxed. CM will continue to follow and will assist as needed with dc plans/needs. Remelt Pan Tank Operator: Venus Solano DCPIA - Discharge Planning Initial Assessment Updated by [email or web address]: Venus Solano on 03/30/19 2:07 pm * Is the patient Alert and Oriented? Yes * How many steps to enter\exit or inside your home? 0/0 * PCP Dr. Walker * [facility] * Preadmission Environment Home with Family * ADLs Partial Dependent * Partial ADLs (Assistance needed) Ambulation * Equipment Cane Walker * List name and contact numbers for known caregivers / representatives who currently or will assist patient after discharge: Alison Morris - - [phone] * Verbal permission to speak to the caregivers and representatives has been obtained from the patient. Yes * Community resources currently utilized Other * Please name any agencies selected above. Out patient PT at [facility] * Additional services required to return to the preadmission environment? Yes * Can the patient safely return to the preadmission environment? Yes * Has this patient been hospitalized within the prior 30 days at any hospital? Yes External Providers External Provider: [facility] Next Contact Date: Service Request Date: Service Type: Resolution: Reviewer: Comments: Coverage Notice Reviewer: [email or web address] Francine Solano Notice Issued Date-Time: 03/30/2019 14:22 Notice Type: Patient Choice Letter Notice Delivered To: Patient Relationship to Patient: Self Licensed Club Manager Name: Delivery Method: HAND - Hand Delivered Phyllis Days: Prior Verbal Notification: Recipient Understood Notice: Yes Recipient Signature: Yes Med Rec Note Co-signed by Attending: Coverage Notice Comment: KAMILA for [facility] and [facility] Last DP export: 03/30/19 1:21 Patient Name: DONALD MORRIS Page 31695 at 1301 All edits/amendments must be made on the electronic document DICTATION DATE: 04/02/19 1300 MILL REPRESENTATIVE: LAURI 04/02/19 1300 RPT#: [id number] DC DATE: STATUS: ADM IN [facility] [address] [place] [address] END OF REPORT
[2019-04-02 13:13] VITALS: BP 116/69
--- NOTE | 2019-04-02 13:31 | MORECARE ---
CASE MANAGEMENT DISCHARGE SUMMARY PATIENT: DONALD MORRIS UNIT: [id number] ADM DATE: 03/27/19 AGE: 64 : 57 SEX: M ROOM/BED: D.2231 AUTHOR: MARIAMA ORR PHYSICIAN: REFERRING PHYSICIAN: DARIUS MARTIN DO DATE OF SERVICE: 04/02/19 Discharge Plan Patient Name: DONALD MORRIS Facility: [facility]:[place] : 1955 Planned Disposition: Home with Home Health Anticipated Discharge Date: Discharge Date: Expected LOS: Initial Reviewer: [email or web address] Initial Review Date: 03/30/2019 Generated: 04/02/19 2:31 pm Comments DCP- Discharge Planning Updated by [id number]: Venus Turkmy on 04/02/19 12:[address] Received IV antibiotic order and DC order. I called Christie with [employer] and clinical and order faxed. I called Radha Gay and they will call his and deliver to the [facility]. I spoke with Robert and informed him to give his dose of Vancomycin before leaving. He is discharging home today with [facility] and [facility]. DCP- Discharge Planning Updated by [email or web address]: Venus Solano on 03/30/19 1:[address] Patient Name: DONALD MORRIS Admission Status: ER Accout number: [id number] Admission Date: 03-27-2019 : 1955 Admission Diagnosis: Attending: DARIUS MARTIN Current LOS: 3 Anticipated DC Date: Planned Disposition: Home with Home Health Primary Insurance: [employer] [facility] EXCHANGE Discharge Planning Comments: CM met with patient to complete initial dc planning assessment. CM educated patient on the CM role and verbal consent given by patient to complete assessment. Patient lives at home with his . At discharge patient plans to return and feels this is a safe discharge. I informed him that Dr. Martin states he will need IV antibiotics at home and explained the process of the infusion company and home health services. KAMILA signed for [employer] and [place]. I spoke with Radha Gay with [place] and informed that I did not have the antibiotic order yet. I spoke with Christie with [facility] and clinical faxed. CM will continue to follow and will assist as needed with dc plans/needs. Woodworking Shop Laborer: Venusanna Solano DCPIA - Discharge Planning Initial Assessment Updated by [id number]: Venus Solano on 03/30/19 2:07 pm * Is the patient Alert and Oriented? Yes * How many steps to enter\exit or inside your home? 0/0 * PCP Dr. Walker * [facility] * Preadmission Environment Home with Family * ADLs Partial Dependent * Partial ADLs (Assistance needed) Ambulation * Equipment Cane Walker * List name and contact numbers for known caregivers / representatives who currently or will assist patient after discharge: Alison Morris - - [phone] * Verbal permission to speak to the caregivers and representatives has been obtained from the patient. Yes * Community resources currently utilized Other * Please name any agencies selected above. Out patient PT at [facility] * Additional services required to return to the preadmission environment? Yes * Can the patient safely return to the preadmission environment? Yes * Has this patient been hospitalized within the prior 30 days at any hospital? Yes Coverage Notice Reviewer: [id number] - Venus Solano Notice Issued Date-Time: 03/30/2019 14:22 Notice Type: Patient Choice Letter Notice Delivered To: Patient Relationship to Patient: Self Csr Name: Delivery Method: HAND - Hand Delivered Phyllis Days: Prior Verbal Notification: Recipient Understood Notice: Yes Recipient Signature: Yes Med Rec Note Co-signed by Attending: Coverage Notice Comment: KAMILA for [facility] and [place] Last DP export: 04/02/19 12:01 Patient Name: DONALD MORRIS Page [id number] at 1331 All edits/amendments must be made on the electronic document DICTATION DATE: 04/02/19 1331 LASER ENGINEER: LAURI 04/02/19 1331 RPT#: [id number] DC DATE: STATUS: ADM IN [facility] [address] [place] [address] END OF REPORT
--- NOTE | 2019-04-06 08:08 | MORECARE ---
CASE MANAGEMENT DISCHARGE SUMMARY PATIENT: DONALD MORRIS UNIT: [id number] ADM DATE: 03/27/19 AGE: 64 : 57 SEX: M ROOM/BED: D.2231 AUTHOR: MARIAMA ORR PHYSICIAN: REFERRING PHYSICIAN: DARIUS MARTIN DO DATE OF SERVICE: 04/06/19 Discharge Plan Patient Name: DONALD MORRIS Facility: [facility]:[place] : 1955 Planned Disposition: Home with Home Health Anticipated Discharge Date: Discharge Date: 04/02/2019 Expected LOS: 0 Initial Reviewer: [email or web address] Initial Review Date: 03/30/2019 Generated: 04/06/19 9:08 am Comments DCP- Discharge Planning Updated by [id number]: Venus Solano on 04/02/19 12:[address] Received IV antibiotic order and DC order. I called Christie with [employer] and clinical and order faxed. I called [facility] and they will call his and deliver to the [facility]. I spoke with Robert and informed him to give his dose of Vancomycin before leaving. He is discharging home today with [facility] and [facility] [employer]. DCP- Discharge Planning Updated by [email or web address]: Venus Turkmy on 03/30/19 1:[address] Patient Name: DONALD MORRIS Admission Status: ER Accout number: [id number] Admission Date: 03-27-2019 : 1955 Admission Diagnosis: Attending: DARIUS MARTIN Current LOS: 3 Anticipated DC Date: Planned Disposition: Home with Home Health Primary Insurance: [employer] [facility] EXCHANGE Discharge Planning Comments: CM met with patient to complete initial dc planning assessment. CM educated patient on the CM role and verbal consent given by patient to complete assessment. Patient lives at home with his . At discharge patient plans to return and feels this is a safe discharge. I informed him that Dr. Martin states he will need IV antibiotics at home and explained the process of the infusion company and home health services. KAMILA signed for [employer] and [place]. I spoke with Radha Gay with [place] and informed that I did not have the antibiotic order yet. I spoke with Christie with [facility] and clinical faxed. CM will continue to follow and will assist as needed with dc plans/needs. Aids Social Worker: Venus Russ DCPIA - Discharge Planning Initial Assessment Updated by [email or web address]: Venus Solano on 03/30/19 2:07 pm * Is the patient Alert and Oriented? Yes * How many steps to enter\exit or inside your home? 0/0 * PCP Dr. Walker * [facility] * Preadmission Environment Home with Family * ADLs Partial Dependent * Partial ADLs (Assistance needed) Ambulation * Equipment Cane Walker * List name and contact numbers for known caregivers / representatives who currently or will assist patient after discharge: Alison Morris - - [phone] * Verbal permission to speak to the caregivers and representatives has been obtained from the patient. Yes * Community resources currently utilized Other * Please name any agencies selected above. Out patient PT at [facility] * Additional services required to return to the preadmission environment? Yes * Can the patient safely return to the preadmission environment? Yes * Has this patient been hospitalized within the prior 30 days at any hospital? Yes Coverage Notice Reviewer: [email or web address] - Venus Russ Notice Issued Date-Time: 03/30/2019 14:22 Notice Type: Patient Choice Letter Notice Delivered To: Patient Relationship to Patient: Self Visual Supervisor Name: Delivery Method: HAND - Hand Delivered Phyllis Days: Prior Verbal Notification: Recipient Understood Notice: Yes Recipient Signature: Yes Med Rec Note Co-signed by Attending: Coverage Notice Comment: KAMILA for [facility] and [place] Last DP export: 04/02/19 12:31 Patient Name: DONALD MORRIS Page 50298 at 0808 All edits/amendments must be made on the electronic document DICTATION DATE: 04/06/19806 MOBILITY SPECIALIST: LAURI 04/06/19806 RPT#: [id number] DC DATE:04/02/19 STATUS: DIS IN [facility] [address] [facility] [place] [address] END OF REPORT
[2019-04-26 09:08] LABS: FUNGUS MYCOLOGY CULTURE Final report (())
== END 2019-04-02 16:00 | disposition home health service (06) | DRG 466 ==
LOC: D.ER 18:44 → D.MS 22:44
PROVIDERS: Family Medicine; ADMIT Orthopaedic Surgery; ATTEND Orthopaedic Surgery
PROC: 0SPB09Z Removal of Liner from Left Hip Joint, Open Approach (ICD-10-PCS; 2019-03-28)
PROC: 0SUB09Z Supplement Left Hip Joint with Liner, Open Approach (ICD-10-PCS; 2019-03-28)
PROC: 0JDM0ZZ Extraction of Left Upper Leg Subcutaneous Tissue and Fascia, Open Approach (ICD-10-PCS; 2019-03-28)
PROC: 0SRS0J9 Replacement of Left Hip Joint, Femoral Surface with Synthetic Substitute, Cemented, Open Approach (ICD-10-PCS; principal; 2019-03-28 08:00)
PROC: 0SPS0JZ Removal of Synthetic Substitute from Left Hip Joint, Femoral Surface, Open Approach (ICD-10-PCS; 2019-03-28 08:00)
PROC: 05HY33Z Insertion of Infusion Device into Upper Vein, Percutaneous Approach (ICD-10-PCS; 2019-03-30)
PROC: 0JDM0ZZ Extraction of Left Upper Leg Subcutaneous Tissue and Fascia, Open Approach (ICD-10-PCS; 2019-04-01)
DX: T84.52XA Infection and inflammatory reaction due to internal left hip prosthesis, initial encounter (principal); A41.9 Sepsis, unspecified organism; D62 Acute posthemorrhagic anemia; N39.0 Urinary tract infection, site not specified; I25.10 Atherosclerotic heart disease of native coronary artery without angina pectoris; B95.8 Unspecified staphylococcus as the cause of diseases classified elsewhere; B96.1 Klebsiella pneumoniae [K. pneumoniae] as the cause of diseases classified elsewhere; B96.4 Proteus (mirabilis) (morganii) as the cause of diseases classified elsewhere

== ENCOUNTER → 2019-04-05 11:08 | Outpatient (CLI) | payer BC ==
[2019-03-29 12:46] VITALS: BMI 28.3
[~2019-04-05 11:08] MED LIST changes: +BAYER CHEWABLE81 MG PO; +PHENERGAN25 M1 PO; +RIFADIN300 MG PO; +SOMA350 MG PO; +Vancomycin 1.25 GM/N IV; +ZYVOX600 MG PO
[2019-04-05 11:42] LABS: BASOPHILS 0.3 % (0-2); EOSINOPHILS 6.4 % (0-7); HEMATOCRIT 38.2 % (42.0-54.0); HEMOGLOBIN 12.7 g/dL (13.5-17.5); IMMATURE GRANULOCYTES 0.8 % (0-5); LYMPHOCYTES 21.3 % (15-50); MCHC 33.2 g/dL (31.0-37.0); MCV 87.2 fL (80.0-100.0); MEAN PLATELET VOLUME 9.5 fL (7.4-10.4); MONOCYTES 11.1 % (2-11); NEUTROPHILS 60.1 % (40-80); RBC 4.38 10x6/uL (4.20-6.10); RDW 13.9 % (11.5-14.5); WBC 7.5 10x3/uL (4.8-10.8)
[2019-04-05 11:44] LABS: PLATELET COUNT 414 10x3/uL (130-400)
[2019-04-05 11:58] LABS: ANION GAP 14.1 mmol/L (8-16); CALCIUM 9.2 mg/dL (8.5-10.1); CARBON DIOXIDE 25.1 mmol/L (21.0-32.0); CREATININE - SERUM 1.4 mg/dL (0.6-1.3); POTASSIUM - SERUM 4.2 mmol/L (3.5-5.1); VANCOMYCIN - TROUGH 20.9 ug/mL (10.0-20.0)
== END | disposition home or self-care (01) ==
LOC: D.LABREF 11:08
PROVIDERS: ATTEND Orthopaedic Surgery
DX: T84.52XA Infection and inflammatory reaction due to internal left hip prosthesis, initial encounter (principal)

== ENCOUNTER → 2019-04-12 10:55 | Outpatient (CLI) | payer BC ==
[2019-03-29 12:46] VITALS: BMI 28.3
[2019-04-12 11:41] LABS: C-REACTIVE PROTEIN 0.3 mg/dL (0.0-0.9); CREATININE - SERUM 1.1 mg/dL (0.6-1.3); VANCOMYCIN - TROUGH 6.7 ug/mL (10.0-20.0)
[2019-04-12 11:43] LABS: BASOPHILS 0.3 % (0-2); EOSINOPHILS 3.8 % (0-7); IMMATURE GRANULOCYTES 0.2 % (0-5); LYMPHOCYTES 22.8 % (15-50); MCH 28.8 pg (26.0-34.0); MCHC 32.5 g/dL (31.0-37.0); MCV 88.7 fL (80.0-100.0); MEAN PLATELET VOLUME 9.5 fL (7.4-10.4); MONOCYTES 8.2 % (2-11); NEUTROPHILS 64.7 % (40-80); PLATELET COUNT 483 10x3/uL (130-400); RBC 4.51 10x6/uL (4.20-6.10); RDW 13.7 % (11.5-14.5); WBC 6.4 10x3/uL (4.8-10.8)
== END | disposition home or self-care (01) ==
LOC: D.LABREF 10:55
PROVIDERS: ATTEND Orthopaedic Surgery
DX: T84.52XA Infection and inflammatory reaction due to internal left hip prosthesis, initial encounter (principal)

== ENCOUNTER 2019-04-13 09:59 | Outpatient (CLI) | payer BC ==
[~2019-04-13] VITALS: Ht 185.4 cm; Wt 94.5 kg
[~2019-04-13 09:59] MED LIST changes: -PHENERGAN25 M1 PO; -SOMA350 MG PO; -ZYVOX600 MG PO
[2019-04-13 10:40] VITALS: BP 153/97; Ht 185.4 cm; Wt 94.5 kg
--- NOTE | 2019-04-13 11:54 | NUR ---
POST INFUSION VITAL SIGNS 147/105, 90, 100%, 18. COMPLAINS OF SLIGHT HEADACHE, BUT THINKS MORE HUNGER RELATED THAN ANYTHING. PICC LINE HEPARIN FLUSHED AND SWAB CAP APPLIED
== END 2019-04-13 11:55 | disposition home or self-care (01) ==
LOC: D.OPS 09:59
PROVIDERS: ATTEND Orthopaedic Surgery
DX: T84.52XA Infection and inflammatory reaction due to internal left hip prosthesis, initial encounter (principal); X58.XXXA Exposure to other specified factors, initial encounter

== ENCOUNTER → 2019-04-19 13:00 | Outpatient (CLI) | payer BC ==
[2019-04-13 10:40] VITALS: BMI 27.5
[~2019-04-19 13:00] MED LIST changes: +PHENERGAN25 M1 PO; +SOMA350 MG PO; +ZYVOX600 MG PO
[2019-04-19 13:20] LABS: BASOPHILS 0.3 % (0-2); EOSINOPHILS 3.5 % (0-7); HEMATOCRIT 38.4 % (42.0-54.0); HEMOGLOBIN 12.6 g/dL (13.5-17.5); IMMATURE GRANULOCYTES 0.2 % (0-5); LYMPHOCYTES 24.9 % (15-50); MCH 28.8 pg (26.0-34.0); MCHC 32.8 g/dL (31.0-37.0); MCV 87.9 fL (80.0-100.0); MEAN PLATELET VOLUME 9.6 fL (7.4-10.4); MONOCYTES 7.7 % (2-11); NEUTROPHILS 63.4 % (40-80); PLATELET COUNT 400 10x3/uL (130-400); RBC 4.37 10x6/uL (4.20-6.10); RDW 13.7 % (11.5-14.5); WBC 6.3 10x3/uL (4.8-10.8)
[2019-04-19 13:34] LABS: C-REACTIVE PROTEIN 0.8 mg/dL (0.0-0.9); CREATININE - SERUM 1.3 mg/dL (0.6-1.3)
[2019-04-19 14:40] LABS: ERYTHROCYTE SEDIMENTATION RATE 36 mm/hr (0-20)
== END | disposition home or self-care (01) ==
LOC: D.LABREF 13:00
PROVIDERS: ATTEND Orthopaedic Surgery
DX: T84.52XA Infection and inflammatory reaction due to internal left hip prosthesis, initial encounter (principal)

== ENCOUNTER → 2019-04-26 17:04 | Outpatient (CLI) | payer BC ==
[2019-04-13 10:40] VITALS: BMI 27.5
[2019-04-26 17:27] LABS: BASOPHILS 0.1 % (0-2); EOSINOPHILS 3.4 % (0-7); HEMATOCRIT 37.2 % (42.0-54.0); HEMOGLOBIN 12.2 g/dL (13.5-17.5); IMMATURE GRANULOCYTES 0.1 % (0-5); LYMPHOCYTES 22.9 % (15-50); MCH 28.8 pg (26.0-34.0); MCHC 32.8 g/dL (31.0-37.0); MCV 87.7 fL (80.0-100.0); MEAN PLATELET VOLUME 9.7 fL (7.4-10.4); NEUTROPHILS 65.5 % (40-80); RBC 4.24 10x6/uL (4.20-6.10); RDW 13.4 % (11.5-14.5); WBC 7.3 10x3/uL (4.8-10.8)
[2019-04-26 17:41] LABS: C-REACTIVE PROTEIN 2.2 mg/dL (0.0-0.9); CREATININE - SERUM 1.3 mg/dL (0.6-1.3)
[2019-04-26 17:45] LABS: PLATELET COUNT 310 10x3/uL (130-400)
[2019-04-26 18:51] LABS: ERYTHROCYTE SEDIMENTATION RATE 29 mm/hr (0-20)
== END | disposition home or self-care (01) ==
LOC: D.LABREF 17:04
PROVIDERS: ATTEND Orthopaedic Surgery
DX: T84.52XA Infection and inflammatory reaction due to internal left hip prosthesis, initial encounter (principal); Z96.642 Presence of left artificial hip joint

== ENCOUNTER → 2019-05-03 17:17 | Outpatient (CLI) | payer BC ==
[2019-04-13 10:40] VITALS: BMI 27.5
[2019-05-03 21:17] LABS: BASOPHILS 0.1 % (0-2); EOSINOPHILS 2.8 % (0-7); HEMATOCRIT 39.6 % (42.0-54.0); HEMOGLOBIN 12.5 g/dL (13.5-17.5); IMMATURE GRANULOCYTES 0.1 % (0-5); MCH 28.3 pg (26.0-34.0); MCHC 31.6 g/dL (31.0-37.0); MCV 89.6 fL (80.0-100.0); MEAN PLATELET VOLUME 9.7 fL (7.4-10.4); MONOCYTES 5.8 % (2-11); NEUTROPHILS 69.2 % (40-80); PLATELET COUNT 346 10x3/uL (130-400); RBC 4.42 10x6/uL (4.20-6.10); RDW 13.7 % (11.5-14.5); WBC 7.9 10x3/uL (4.8-10.8)
[2019-05-03 21:17] LABS: BASOPHILS 0.2 % (0-2); EOSINOPHILS 3.3 % (0-7); HEMATOCRIT 39.3 % (42.0-54.0); HEMOGLOBIN 12.4 g/dL (13.5-17.5); IMMATURE GRANULOCYTES 0.2 % (0-5); LYMPHOCYTES 21.3 % (15-50); MCH 28.6 pg (26.0-34.0); MCHC 31.6 g/dL (31.0-37.0); MCV 90.8 fL (80.0-100.0); MEAN PLATELET VOLUME 9.4 fL (7.4-10.4); MONOCYTES 9.1 % (2-11); NEUTROPHILS 65.9 % (40-80); PLATELET COUNT 331 10x3/uL (130-400); RBC 4.33 10x6/uL (4.20-6.10); RDW 13.9 % (11.5-14.5); WBC 8.7 10x3/uL (4.8-10.8)
[2019-05-03 21:34] LABS: ALBUMIN 3.7 g/dL (3.4-5.0); ANION GAP 17.4 mmol/L (8-16); BILIRUBIN - TOTAL 0.2 mg/dL (0.2-1.3); C-REACTIVE PROTEIN 1.6 mg/dL (0.0-0.9); CALCIUM 9.2 mg/dL (8.5-10.1); CARBON DIOXIDE 25.9 mmol/L (21.0-32.0); CREATININE - SERUM 1.2 mg/dL (0.6-1.3); POTASSIUM - SERUM 4.3 mmol/L (3.5-5.1); PROTEIN - SERUM 7.7 g/dL (6.4-8.2)
[2019-05-03 21:52] LABS: CREATINE KINASE 302 UL (21-232); CREATININE - SERUM 1.2 mg/dL (0.6-1.3); UREA NITROGEN 22 mg/dL (7-18)
[2019-05-03 21:57] LABS: CKMB 1.8 U/L (0.0-3.6)
[2019-05-03 22:38] LABS: ERYTHROCYTE SEDIMENTATION RATE 31 mm/hr (0-20)
[2019-05-03 22:38] LABS: ERYTHROCYTE SEDIMENTATION RATE 35 mm/hr (0-20)
== END | disposition home or self-care (01) ==
LOC: D.LABREF 17:17
PROVIDERS: ATTEND Orthopaedic Surgery
DX: T84.52XA Infection and inflammatory reaction due to internal left hip prosthesis, initial encounter (principal)

== ENCOUNTER → 2019-05-10 15:09 | Outpatient (CLI) | payer BC ==
[2019-04-13 10:40] VITALS: BMI 27.5
[2019-05-10 15:52] LABS: BASOPHILS 0.3 % (0-2); EOSINOPHILS 2.8 % (0-7); HEMATOCRIT 38.7 % (42.0-54.0); HEMOGLOBIN 12.4 g/dL (13.5-17.5); IMMATURE GRANULOCYTES 0.3 % (0-5); LYMPHOCYTES 21.5 % (15-50); MCH 28.2 pg (26.0-34.0); MCV 88.2 fL (80.0-100.0); MEAN PLATELET VOLUME 9.6 fL (7.4-10.4); MONOCYTES 8.3 % (2-11); NEUTROPHILS 66.8 % (40-80); PLATELET COUNT 404 10x3/uL (130-400); RBC 4.39 10x6/uL (4.20-6.10); RDW 13.4 % (11.5-14.5); WBC 7.7 10x3/uL (4.8-10.8)
[2019-05-10 16:25] LABS: CREATINE KINASE 246 UL (21-232); UREA NITROGEN 22 mg/dL (7-18)
[2019-05-10 16:26] LABS: CKMB 1.4 U/L (0.0-3.6)
[2019-05-10 17:15] LABS: ERYTHROCYTE SEDIMENTATION RATE 48 mm/hr (0-20)
== END | disposition home or self-care (01) ==
LOC: D.LABREF 15:09
PROVIDERS: ATTEND Orthopaedic Surgery
DX: T84.52XA Infection and inflammatory reaction due to internal left hip prosthesis, initial encounter (principal)

== ENCOUNTER → 2019-05-17 14:19 | Outpatient (CLI) | payer BC ==
[2019-04-13 10:40] VITALS: BMI 27.5
[2019-05-17 14:28] LABS: BASOPHILS 0.4 % (0-2); HEMATOCRIT 37.2 % (42.0-54.0); HEMOGLOBIN 11.9 g/dL (13.5-17.5); IMMATURE GRANULOCYTES 0.2 % (0-5); LYMPHOCYTES 22.6 % (15-50); MCH 28.1 pg (26.0-34.0); MCV 87.7 fL (80.0-100.0); MEAN PLATELET VOLUME 9.2 fL (7.4-10.4); MONOCYTES 6.1 % (2-11); NEUTROPHILS 67.7 % (40-80); PLATELET COUNT 371 10x3/uL (130-400); RBC 4.24 10x6/uL (4.20-6.10); RDW 13.4 % (11.5-14.5); WBC 5.6 10x3/uL (4.8-10.8)
[2019-05-17 14:45] LABS: C-REACTIVE PROTEIN 0.6 mg/dL (0.0-0.9); CREATININE - SERUM 1.1 mg/dL (0.6-1.3)
[2019-05-17 15:50] LABS: ERYTHROCYTE SEDIMENTATION RATE 33 mm/hr (0-20)
== END | disposition home or self-care (01) ==
LOC: D.LABREF 14:19
PROVIDERS: ATTEND Orthopaedic Surgery
DX: T84.52XA Infection and inflammatory reaction due to internal left hip prosthesis, initial encounter (principal)

== ENCOUNTER 2019-05-19 17:35 | Inpatient (IN) | payer BC ==
[~2019-05-19] VITALS: Ht 185.4 cm; Wt 95.5 kg
--- NOTE | ~2019-05-19 | EC ---
PATIENT:DONALD MORRIS DATE OF SERVICE: 05/19/19 SEX: M MEDICAL RECORD: [id number] DATE OF : [birth year] [facility] AGE OF PATIENT: 64 ADMISSION DATE: 05/19/19 REFERRING PHYSICIAN: INTERPRETING PHYSICIAN: BEULAH SHAHID MD ECHOCARDIOGRAM REPORT ECHO CHARGES 4 ECHO COMPLETE Date: 05/20/19 CLINICAL DIAGNOSIS: CHF ECHOCARDIOGRAPHIC MEASUREMENTS (adult normal given) AC root (d.<3.7cm) 3.9 cm LV Septum d (<1.2 cm> 1.4 cm Valve Excursion 2.3 cm LV Septum (systole) 1.8 cm Left Atria (s.<4.0cm> 4.1 cm LVPW d(<1.2cm) 1.2 cm RV (d.<2.3cm) 3.2 cm LVPW (sytole) 1.9 cm LV diastole(<5.6CM) 5.3 cm MV E-F(>70mm/sec) cm LV systole 3.2 cm LVOT Diameter 2.2 cm MV exc.(>10mm) cm Est.ejection fraction (50-75%) % DOPPLER: LVIT cm/sec A 59.0 cm/sec E 73.0 cm/sec LA cm/sec RVSP 28.0 mmHg LVOT 98.0 cm/sec AOP1/2T m/s Asc. Ao 129 cm/sec RVOT 61.0 cm/sec RA cm/sec PA 97.0 cm/sec AV Gradient Peak 6.7 mmHg AV Mean 3.7 mmHg AV Area 2.6 cm MV Gradient Peak 4.0 mmHg MV Mean 1.4 mmHg MV Area cm COMMENTS: Chemical Cell Changer: 1 [employer] [employer] Set Off Press Operator: 1 Dr. Shahid TAPE# PACS Pericardial Effusion N DATE OF SERVICE: FINDINGS: 1. Left ventricular chamber size is within normal limits. Left ventricular systolic function is normal at 50%. 2. Left atrium is enlarged at 4.1 cm. Right atrium and right ventricular chamber sizes are as well mildly dilated. 3. Valvular structures have normal structure and motion. 4. Doppler interrogation reveals mild mitral regurgitation, mild tricuspid regurgitation, no other valvular insufficiency or stenosis. Pulmonary systolic ECHOCARDIOGRAM REPORT [id number] DONALD MORRIS pressure is estimated 28 mmHg. 5. No evidence of pericardial effusion or left ventricular thrombus. TRANSINT:[id number] Voice Confirmation ID: [id number] DOCUMENT ID: [id number] BEULAH SHAHID MD CC: [id number] DICTATION DATE: 05/20/19 1331 CDS SALES ADVISOR: 05/20/19 1353 ADM IN [facility] [address] [place] [id number]
[~2019-05-19 17:35] MED LIST changes: -PHENERGAN25 M1 PO; -SOMA350 MG PO; -ZYVOX600 MG PO
[2019-05-19 18:36] LABS: HEMATOCRIT 37.1 % (42.0-54.0); HEMOGLOBIN 12.4 g/dL (13.5-17.5); LYMPHOCYTES 7.4 % (15-50); MCH 28.1 pg (26.0-34.0); MCHC 33.4 g/dL (31.0-37.0); MCV 83.9 fL (80.0-100.0); MEAN PLATELET VOLUME 8.6 fL (7.4-10.4); NEUTROPHILS 88.1 % (40-80); RBC 4.42 10x6/uL (4.20-6.10); WBC 7.8 10x3/uL (4.8-10.8)
[2019-05-19 18:38] LABS: PLATELET COUNT 267 10x3/uL (130-400)
[2019-05-19 19:12] VITALS: BP 132/78
[2019-05-19 19:24] LABS: ANION GAP 13.5 mmol/L (8-16); CALCIUM 9.5 mg/dL (8.5-10.1); CARBON DIOXIDE 24.4 mmol/L (21.0-32.0); CREATININE - SERUM 1.2 mg/dL (0.6-1.3); POTASSIUM - SERUM 3.9 mmol/L (3.5-5.1)
[2019-05-19 19:35] LABS: ALBUMIN 3.8 g/dL (3.4-5.0); BILIRUBIN - TOTAL 0.36 mg/dL (0.2-1.3); PROTEIN - SERUM 8.1 g/dL (6.4-8.2)
[2019-05-19 20:19] LABS: APPEARANCE CLEAR (CLEAR); BILIRUBIN NEGATIVE (NEGATIVE); COLOR YELLOW (YELLOW); GLUCOSE NEGATIVE (NEGATIVE); KETONE NEGATIVE (NEGATIVE); NITRITE NEGATIVE (NEGATIVE); PROTEIN NEGATIVE (NEGATIVE); UROBILINOGEN NORMAL (NORMAL)
--- NOTE | 2019-05-19 21:45 | NUR ---
CRISTELA NOT GIVEN D/T PT TAKES AT HOME AND HAD TAKEN TODAY ALREADY
[2019-05-19 21:56] VITALS: BP 103/50
--- NOTE | 2019-05-19 22:00 | NUR ---
RIFAMPIN WAS TO BE TAKEN TODAY AT HOME BY PT. PT REPORTS NOT TAKING RIFAMPIN TODAY, ADMINISTERED RIFAMPIN
--- NOTE | 2019-05-19 22:10 | NUR ---
RECEIVED PT TO ROOM 2302 FROM THE ED. PT WAS ABLE TO TRANSFER HIMSELF TO THE BED. PT ATTACHED TO MONITORS AND ALL ARE WORKING, WITH ALARMS ON AND SET. NO NEEDS VOICED AT THIS TIME. ADMISSION ASSESSMENT, HX, AND SUICIDE SCREEN COMPLETED. NO S/S OF DISTRESS NOTED. WILL CONTINUE TO MONITOR.
[2019-05-19 22:16] LABS: T4 THYROXIN - FREE 0.67 ng/dL (0.76-1.46); THYROID STIMULATING HORMONE 0.91 uIU/mL (0.36-3.74)
[2019-05-19] MEDS ORDERED: PHENERGAN25 M1 PO (22:22)
[2019-05-19] MEDS ORDERED: SOMA350 MG PO (22:23)
[2019-05-19 22:35] VITALS: BP 102/66; BMI 27.8
[2019-05-19 23:00] VITALS: BP 100/59
--- NOTE | 2019-05-19 23:00 | NUR ---
PT IS RESTING IN BED AT THIS TIME. TEMP CONTINUES TO TREND DOWN. NO NEEDS VOICED FROM PT. NO S/S OF DISTRESS. WILL CONTINUE TO MONITOR.
[2019-05-20] VITALS (24 sets, daily range): BP systolic 72–130; BP diastolic 52–90; Ht 185.4 cm; Wt 95.5 kg
--- NOTE | 2019-05-20 01:00 | NUR ---
PT IS RESTING IN BED WITH EYES CLOSED. NO NEEDS VOICED. NO S/S OF DISTRESS. TEMP CONTINUES TO GO DOWN. WILL CONTINUE TO MONITOR.
--- NOTE | 2019-05-20 03:00 | NUR ---
REASSESSMENT COMPLETED, SEE FLOWSHEET FOR DETAILS. PT VOICED NO NEEDS AT THIS TIME. NO S/S OF DISTRESS. WILL CONTINUE TO MONITOR.
--- NOTE | 2019-05-20 05:00 | NUR ---
PT IS LAYING IN BED WITH EYES CLOSED AT THIS TIME. NO NEEDS VOICED. NO S/S OF DISTRESS. WILL CONTINUE TO MONITOR.
[2019-05-20 05:53] LABS: HEMATOCRIT 30.9 % (42.0-54.0); HEMOGLOBIN 10.2 g/dL (13.5-17.5); LYMPHOCYTES 8.3 % (15-50); MCH 27.7 pg (26.0-34.0); MEAN PLATELET VOLUME 8.8 fL (7.4-10.4); NEUTROPHILS 88.9 % (40-80); RBC 3.68 10x6/uL (4.20-6.10); RDW 12.9 % (11.5-14.5)
[2019-05-20 06:28] LABS: PLATELET COUNT 190 10x3/uL (130-400); WBC 5.1 10x3/uL (4.8-10.8)
[2019-05-20 06:36] LABS: ALKALINE PHOSPHATASE 69 U/L (46-116); ALT (SGPT) 22 U/L (10-68); BILIRUBIN - TOTAL 0.78 mg/dL (0.2-1.3); CALC OSMOLALITY 282 mosm/kg (275-300); CALCIUM 8.3 mg/dL (8.5-10.1); CARBON DIOXIDE 23.5 mmol/L (21.0-32.0); CHLORIDE - SERUM 106 mmol/L (98-107); CREATININE - SERUM 1.1 mg/dL (0.6-1.3); GLUCOSE 97 mg/dL (74-106); MAGNESIUM - SERUM 1.7 mg/dL (1.8-2.4); PHOSPHOROUS 4.4 mg/dL (2.5-4.9); POTASSIUM - SERUM 3.7 mmol/L (3.5-5.1); PRO BNP 702 pg/mL (0-125); PROTEIN - SERUM 6.4 g/dL (6.4-8.2); SODIUM 141 mmol/L (136-145); UREA NITROGEN 17 mg/dL (7-18); eGFR NON AFRICAN AMERICAN 72 mL/min (90-120)
[2019-05-20 06:37] LABS: ALBUMIN 2.8 g/dL (3.4-5.0); CREATINE KINASE 388 UL (21-232)
--- NOTE | 2019-05-20 07:15 | NUR ---
REPORT RECEIVED. PT ALERT AND ORIENTED. PT HAS PICC IN LEFT UPPER ARM FROM PREVIOUS STAY AND FOR ANTIBIOTICS ALF AT HOME. HAS NS AT 125ML/HR. PT AFEBRILE AT THIS TIME. HAS A CRITICORE MORFIN. NO COMPLAINS OR NEEDS AT THIS TIME.
--- NOTE | 2019-05-20 09:14 | NUR ---
CALLED VASCULAR ACCESS NURSE ABOUT D/CING CURRENT PICC AND PLACING A NEW ONE. LEFT VOICEMAIL. DOPPLER DONE ON BILATERAL LEGS. NO DVTS NOTED. NO OTHER NEEDS AT THIS TIME. WILL CONTINUE TO MONITOR.
[2019-05-20 09:21] LABS: INR 1.24 (0.85-1.17); PROTIME 15.1 SECONDS (11.6-15.0)
[2019-05-20 09:22] LABS: APTT 36.8 SECONDS (22.8-39.4)
--- NOTE | 2019-05-20 11:15 | NUR ---
PT TEMP IS DECREASING FROM 99.8 TO 99.2. STATES THAT PAIN HAS DECREASED IN LEG. VSS. WILL CONTINUE TO MONITOR.
--- NOTE | 2019-05-20 13:45 | NUR ---
PT REQUESTS SOMETHING TO EAT. STATES HE FINALLY GOT AN APPETITE. WILL CALL DIETARY FOR A SANDWICH TRAY. NO OTHER NEEDS AT THIS TIME.
--- NOTE | 2019-05-20 15:12 | NUR ---
VASCULAR ACCESS NURSE IN WITH PT TO REMOVE PICC LINE. WILL PLACE MIDLINE CATH. WILL CONTINUE TO MONITOR.
--- NOTE | 2019-05-20 17:09 | NUR ---
PT SITTING UP IN BED EATING DINNER. VSS. NO COMPLAINTS OR NEEDS AT THIS TIME. WILL CONTINUE TO MONITOR.
--- NOTE | 2019-05-20 19:10 | NUR ---
SUPINE IN BED, A&O X 4. VS STABLE. PERIPHERAL PULSES PALPABLE. . REPORTS MILD STIFFNESS TO LOWER EXTREMETIES, BUT STATES IT'S DUE TO BEING IN BED SO LONG. REPORTS HE IS ABLE TO WALK/AND GET AROUND WITHOUT ISSUE, BUT INFORMED PT TO CALL PRIOR TO AMBULATING. DENIES NEEDS AT THIS TIME, WILL CONTINUE TO MONITOR.
--- NOTE | 2019-05-20 21:30 | NUR ---
DENIES PAIN/DISCOMFORT AT THIS TIME. MAGUE CRACKERS GIVEN PER REQUEST. NO FURTHER NEEDS AT THIS TIME.
--- NOTE | 2019-05-20 23:00 | NUR ---
RIGHT SIDE-LYING IN BED, DENIES ANY COMPLAINTS OTHER THAN DISAPPOINTMENT IN THE [place]. PT CONSUMED TALL GLASS OF WATER, REQUESTS ANOTHER BEFORE HE GOES TO SLEEP. BP READING 92/38 IN LEFT UPPER ARM. SMALLER CUFF ATTATCHED TO MONITOR AND PLACED TO LEFT WRIST. BP READS 92/59. PT REPORTS DECREASE IN DISCOMFORT. NO FURTHER NEEDS AT THIS TIME, WILL CONTINUE TO MONITOR.
[2019-05-21] VITALS (7 sets, daily range): BP systolic 95–140; BP diastolic 56–98
--- NOTE | 2019-05-21 01:00 | NUR ---
PT AWAKE IN ROOM, REPORTS TROUBLE SLEEPING WITHOUT ATIVAN, WHICH HE TAKES AT HOME. INFORMED PT THAT HIS HOME MEDS WERE REVIEWED BY AND ATIVAN WAS HELD. PT VERBALIZED UNDERSTANDING. CRITI-CORE CATHETER READS 98.1F. VS STABLE. NO NEEDS VOICED AT THIS TIME.
--- NOTE | 2019-05-21 02:42 | NUR ---
I have reviewed this patient and I concur with the Shift Assessment completed by the Licensed Practical Nurse today this shift.
--- NOTE | 2019-05-21 07:40 | NUR ---
PATIENT IS ALERT AND ORIENTED. DENIES PAIN AND NEEDS AT THIS TIME. NO ACUTE DISTRESS. HOB 30. AMBULATES ALONE. AWAITING DR DE DIOS TO SEE IF HE CAN TRANSFER OUT. BREAKFAST TRAY AT BEDSIDE.
--- NOTE | 2019-05-21 10:12 | NUR ---
98.1 TEMP AT THIS TIME.
--- NOTE | 2019-05-21 10:18 | NUR ---
PAGED DR ESPINOZA THROUGH [employer]
[2019-05-21] MEDS ORDERED: ZYVOX600 MG PO (13:33)
--- NOTE | 2019-05-21 14:35 | NUR ---
PATIENT DISCHARGED VIA WHEELCHAIR.
--- NOTE | 2019-05-21 14:35 | NUR ---
SHELBIE RAND'Ninfa. ABISAI RAND'D
--- NOTE | 2019-05-21 17:56 | MORECARE ---
CASE MANAGEMENT DISCHARGE SUMMARY PATIENT: DONALD MORRIS UNIT: [id number] ADM DATE: 05/19/19 AGE: 64 : 57 SEX: M ROOM/BED: D.2302 AUTHOR: MARIAMA ORR PHYSICIAN: REFERRING PHYSICIAN: KERI DE DIOS MD DATE OF SERVICE: 05/21/19 Discharge Plan Patient Name: DONALD MORRIS Facility: [facility]:[place] : 1955 Planned Disposition: Home Anticipated Discharge Date: Discharge Date: 05/21/2019 Expected LOS: Initial Reviewer: [email or web address] Initial Review Date: 05/20/2019 Generated: 05/21/19 6:55 pm Coverage Notice Reviewer: [email or web address] Francine Saavedra Notice Issued Date-Time: 05/20/2019 16:40 Notice Type: Patient Choice Letter Notice Delivered To: Patient Relationship to Patient: Self Lump Maker Name: Delivery Method: HAND - Hand Delivered Phyllis Days: Prior Verbal Notification: Recipient Understood Notice: Yes Recipient Signature: Yes Med Rec Note Co-signed by Attending: Coverage Notice Comment: Patient Name: DONALD MORRIS Page [phone] at 1756 All edits/amendments must be made on the electronic document DICTATION DATE: 05/21/191754 COORDINATOR HOTELS: LAURI 05/21/191754 RPT#: [id number] DC DATE:05/21/19 STATUS: DIS IN [place] [id number] [place] [address] END OF REPORT
--- NOTE | 2019-05-21 18:05 | MORECARE ---
CASE MANAGEMENT DISCHARGE SUMMARY PATIENT: DONALD MORRIS UNIT: [id number] ADM DATE: 05/19/19 AGE: 64 : 57 SEX: M ROOM/BED: D.2302 AUTHOR: DOMINGA,DOC PHYSICIAN: REFERRING PHYSICIAN: KERI DE DIOS MD DATE OF SERVICE: 05/21/19 Discharge Plan Patient Name: DONALD MORRIS Facility: [facility]:[place] : 1955 Planned Disposition: Home Anticipated Discharge Date: Discharge Date: 05/21/2019 Expected LOS: Initial Reviewer: [email or web address] Initial Review Date: 05/20/2019 Generated: 05/21/19 7:05 pm Comments DCP- Discharge Planning Updated by [email or web address]: Pza Saavedra on 05/21/19 5:[address] LATE ENTRY 05/21/19 Patient Name: DONALD MORRIS Admission Status: ER Accout number: [id number] Admission Date: 05-19-2019 : 1955 Admission Diagnosis: Attending: KERI DE DIOS Current LOS: 2 Anticipated DC Date: Planned Disposition: Home Primary Insurance: [employer] EXCHANGE Discharge Planning Comments: CM met with patient at bedside after explaining CM role and obtaining verbal consent. Patient lives at home with his where he is independent with his care and plans to return there upon discharge. Patient feels this would be a safe discharge. CM discussed availability / needs of home health and medical equipment. KAMILA signed for [facility] to resume. Patient denies any discharge needs at this time. Patient states he will have his family drive him home upon discharge. CM will continue to follow and assist as needed with discharge planning / needs. Pediatrics Physician: Paz Saavedra DCPIA - Discharge Planning Initial Assessment Updated by [email or web address]: Paz Saavedra on 05/21/19 6:01 pm * Is the patient Alert and Oriented? Yes * How many steps to enter\exit or inside your home? * PCP [facility] * [facility] * Preadmission Environment Home with Family * ADLs Independent * Other Equipment WALKER, CANE * List name and contact numbers for known caregivers / representatives who currently or will assist patient after discharge: SHALINI MORRIS - SPOUSE - [phone] * Verbal permission to speak to the caregivers and representatives has been obtained from the patient. Yes * Community resources currently utilized Home Health * Please name any agencies selected above. [facility] * Additional services required to return to the preadmission environment? No * Can the patient safely return to the preadmission environment? Yes * Has this patient been hospitalized within the prior 30 days at any hospital? No Coverage Notice Reviewer: [id number] Francine Saavedra Notice Issued Date-Time: 05/20/2019 16:40 Notice Type: Patient Choice Letter Notice Delivered To: Patient Relationship to Patient: Self [employer] Supervisor Name: Delivery Method: HAND - Hand Delivered Phyllis Days: Prior Verbal Notification: Recipient Understood Notice: Yes Recipient Signature: Yes Med Rec Note Co-signed by Attending: Coverage Notice Comment: Last DP export: 05/21/19 4:56 p Patient Name: DONALD MORRIS Page [phone] at 1805 All edits/amendments must be made on the electronic document DICTATION DATE: 05/21/191804 SKEIN SPOOLER: LAURI 05/21/19 180 RPT#: [id number] DC DATE:05/21/19 STATUS: DIS IN [facility] [address] [place] [address] END OF REPORT
--- NOTE | 2019-05-21 18:45 | MORECARE ---
CASE MANAGEMENT DISCHARGE SUMMARY PATIENT: DONALD MORRIS UNIT: [id number] ADM DATE: 05/19/19 AGE: 64 : 57 SEX: M ROOM/BED: D.2302 AUTHOR: DOMINGA,DOC PHYSICIAN: REFERRING PHYSICIAN: KERI DE DIOS MD DATE OF SERVICE: 05/21/19 Discharge Plan Patient Name: DONALD MORRIS Facility: [facility]:[place] : 1955 Planned Disposition: Home Anticipated Discharge Date: Discharge Date: 05/21/2019 Expected LOS: Initial Reviewer: [email or web address] Initial Review Date: 05/20/2019 Generated: 05/21/19 7:44 pm Comments DCP- Discharge Planning Updated by [email or web address]: Paz Saavedra on 05/21/19 5:[address] LATE ENTRY 05/21/19 Patient Name: DONALD MORRIS Admission Status: ER Accout number: [id number] Admission Date: 05-19-2019 : 1955 Admission Diagnosis: Attending: KERI DE DIOS Current LOS: 2 Anticipated DC Date: Planned Disposition: Home Primary Insurance: [employer] EXCHANGE Discharge Planning Comments: CM met with patient at bedside after explaining CM role and obtaining verbal consent. Patient lives at home with his where he is independent with his care and plans to return there upon discharge. Patient feels this would be a safe discharge. CM discussed availability / needs of home health and medical equipment. KAMILA signed for [facility] to resume. Patient denies any discharge needs at this time. Patient states he will have his family drive him home upon discharge. CM will continue to follow and assist as needed with discharge planning / needs. Patient Services Representative: Paz Saavedra DCPIA - Discharge Planning Initial Assessment Updated by [email or web address]: Paz Saavedra on 05/21/19 6:01 pm * Is the patient Alert and Oriented? Yes * How many steps to enter\exit or inside your home? * PCP [facility] * [facility] * Preadmission Environment Home with Family * ADLs Independent * Other Equipment WALKER, CANE * List name and contact numbers for known caregivers / representatives who currently or will assist patient after discharge: SHALINI MORRIS - SPOUSE - [phone] * Verbal permission to speak to the caregivers and representatives has been obtained from the patient. Yes * Community resources currently utilized Home Health * Please name any agencies selected above. [facility] * Additional services required to return to the preadmission environment? No * Can the patient safely return to the preadmission environment? Yes * Has this patient been hospitalized within the prior 30 days at any hospital? No Coverage Notice Reviewer: [id number] Francine Saavedra Notice Issued Date-Time: 05/20/2019 16:40 Notice Type: Patient Choice Letter Notice Delivered To: Patient Relationship to Patient: Self Condenser Cleaner Name: Delivery Method: HAND - Hand Delivered Phyllis Days: Prior Verbal Notification: Recipient Understood Notice: Yes Recipient Signature: Yes Med Rec Note Co-signed by Attending: Coverage Notice Comment: Last DP export: 05/21/19 5:05 p Patient Name: DONALD MORRIS Page [phone] at 1845 All edits/amendments must be made on the electronic document DICTATION DATE: 05/21/191843 HISTOLOGIST TECHNOLOGIST: LAURI 05/21/191843 RPT#: [id number] DC DATE:05/21/19 STATUS: DIS IN [facility] [address] [place] [address] END OF REPORT
[2019-05-24 03:06] LABS: INFLUENZA A PCR Negative (Negative); INFLUENZA B PCR Negative (Negative)
== END 2019-05-21 14:45 | disposition home or self-care (01) | DRG 559 ==
LOC: D.ER 17:35 → D.ICU 21:40
PROVIDERS: Family Medicine; ADMIT Internal Medicine Nephrology; ATTEND Internal Medicine Nephrology
PROC: 05HY33Z Insertion of Infusion Device into Upper Vein, Percutaneous Approach (ICD-10-PCS; principal; 2019-05-20)
DX: T84.52XA Infection and inflammatory reaction due to internal left hip prosthesis, initial encounter (principal); J96.01 Acute respiratory failure with hypoxia; I50.31 Acute diastolic (congestive) heart failure; N17.9 Acute kidney failure, unspecified; R50.9 Fever, unspecified; D64.9 Anemia, unspecified; F41.8 Other specified anxiety disorders; I25.10 Atherosclerotic heart disease of native coronary artery without angina pectoris; E83.42 Hypomagnesemia; Z79.2 Long term (current) use of antibiotics; T84.52XD Infection and inflammatory reaction due to internal left hip prosthesis, subsequent encounter

== ENCOUNTER → 2019-10-04 06:33 | Day surgery (SDC) | payer BC ==
[~2019-10-04] VITALS: Ht 185.4 cm; Wt 97.5 kg
[~2019-10-04 06:33] MED LIST changes: +LYRICA75 MG PO; +MONODOX100 MG PO; +PHENERGAN25 M1 PO; +PREDNISONE20 MG PO; +SOMA350 MG PO; +ZYVOX600 MG PO
[2019-10-04 06:53] LABS: BASOPHILS 0.5 % (0-2); EOSINOPHILS 2.3 % (0-7); HEMATOCRIT 39.9 % (42.0-54.0); HEMOGLOBIN 12.5 g/dL (13.5-17.5); LYMPHOCYTES 27.8 % (15-50); MCH 25.7 pg (26.0-34.0); MCHC 31.3 g/dL (31.0-37.0); MCV 81.9 fL (80.0-100.0); MEAN PLATELET VOLUME 9.2 fL (7.4-10.4); MONOCYTES 10.3 % (2-11); NEUTROPHILS 59.1 % (40-80); RBC 4.87 10x6/uL (4.20-6.10)
[2019-10-04 06:56] LABS: ANION GAP 11.2 mmol/L (8-16); CALCIUM 8.9 mg/dL (8.5-10.1); CARBON DIOXIDE 27.9 mmol/L (21.0-32.0); CREATININE - SERUM 1.1 mg/dL (0.6-1.3); POTASSIUM - SERUM 4.1 mmol/L (3.5-5.1)
[2019-10-04 07:04] LABS: PLATELET COUNT 254 10x3/uL (130-400)
[2019-10-04 08:29] VITALS: BP 125/81; Ht 185.4 cm; Wt 97.5 kg
--- NOTE | 2019-10-04 11:34 | NUR ---
1130 PATIENT AROUSES, OPA DISCONTINED. PATIENT MAINTAINING PATENT AIRWAY
--- NOTE | 2019-10-04 13:22 | NUR ---
PT IS RESTING QUIETLY IN BED. ABLE TO TOLERATE FULL LIQUID DIET. DENIES PAIN/NEEDS AT THIS TIME. WILL CONTINUE TO MONITOR.
--- NOTE | 2019-10-04 13:38 | NUR ---
DC INSTRUCTIONS GIVEN TO PT. STATES UNDERSTANDING. VOIDING REQUIRED BEFORE PT IS DC'D. WILL CONTINUE TO MONITOR.
--- NOTE | 2019-10-04 13:56 | NUR ---
PT VOIDED. DC'D IV CATH FULLY INTACT. WAITING FOR PT'S RIDE TO ARRIVE TO PICK HIM UP
== END | disposition home or self-care (01) ==
LOC: D.PAN 06:33 → D.OPS 08:45
PROVIDERS: Anesthesiology; ATTEND Surgery
DX: K80.10 Calculus of gallbladder with chronic cholecystitis without obstruction (principal); K40.90 Unilateral inguinal hernia, without obstruction or gangrene, not specified as recurrent